=== PATIENT | female | born 1945 | race Caucasian/White ===

== ENCOUNTER 2020-01-12 10:39 | Outpatient (CLI) | payer MEDICARE, BC, SELFPAY ==
--- NOTE | 2020-01-12 10:52 | MM_ITS ---
WS: [id number] Bilateral screening digital mammogram, 01/12/2020 Clinical Data: SCREEN Comparison: 06/19/2016, 04/19/2015, 04/10/2014, 02/15/2013, 08/29/2011, 06/06/2011, 05/23/2011, 04/23/2010 , 03/30/2009, 04/08/2007, 04/17/2006. Findings: The breast parenchymal pattern shows fibroglandular tissue No spiculated masses or clustered calcific ations are seen. There are no secondary signs of carcinoma. MM/[id number] Impression: 1. Negative bilateral mammogram unchanged. 2. Recommend annual screening mammograms. BIRADS: 1-Negative FOLLOW UP: 1 Year Follow-up The CAD box car checker was used.
== END 2020-01-12 10:40 | disposition home or self-care (01) ==
LOC: RADSHAW 10:49
PROVIDERS: PCP Family Medicine; Visit Provider Family Medicine
DX: Z12.31 Encounter for screening mammogram for malignant neoplasm of breast (principal)
CPT/HCPCS: 77067

== ENCOUNTER 2021-03-29 09:30 | Outpatient (CLI) | payer MEDICARE, BC, SELFPAY ==
--- NOTE | 2021-03-29 09:34 | MM_ITS ---
WS: [id number] BILATERAL SCREENING DIGITAL MAMMOGRAM WITH CAD HISTORY: SCREENING COMPARISON: 01/12/2020 and 04/19/2015 Bilateral CC and MLO views submitted. Computer aided detection analyzed. Breast composition: There are scattered areas of fibroglandular density. No suspicious masses, microc alcifications or architectural distortion. Stable calcifications in each breast. MM/[id number] IMPRESSION: BI-RADS: 2-Benign FOLLOW UP: 1 Year Follow-up
== END 2021-03-29 09:31 | disposition home or self-care (01) ==
LOC: RADSHAW 09:33
PROVIDERS: PCP Family Medicine; Visit Provider Radiology Neuroradiology
DX: Z12.31 Encounter for screening mammogram for malignant neoplasm of breast (principal)
CPT/HCPCS: 77067

== ENCOUNTER → 2021-10-10 10:53 | Outpatient (BNVA) | payer MEDICARE, BC, SELFPAY | PROVIDERS: PCP Family Medicine; Referring Provider Internal Medicine; Visit Provider Anesthesiology Pain Medicine | DX: M54.16 Radiculopathy, lumbar region (principal); M79.605 Pain in left leg; M54.2 Cervicalgia; Z87.891 Personal history of nicotine dependence | CPT/HCPCS: 72120; 99204 ==

== ENCOUNTER 2021-11-20 07:36 | Outpatient (CLI) | payer MEDICARE, BC, SELFPAY ==
--- NOTE | 2021-11-20 08:00 | MR_ITS ---
WS: [id number] MRI LUMBAR SPINE NONCONTRAST TECHNIQUE: Sagittal T1, T2 and STIR imaging. Axial T1 and T2 imaging. CLINICAL INFORMATION: M54.16 - Radiculopathy, lumbar region COMPARISON: None. FINDINGS: Mild lumbar curve. No acute compression. No high-grade central canal stenosis. Slight retrolisthesis C4 on C5 on the access control officer imaging with mild central canal stenosis. This can be further evaluated with ce rvical spine MRI. L1-L2: Normal. L2-L3: Mild annular bulging. Slight effacement of ventral thecal sac. Slight narrowing of the RIGHT s ubarticular recess. Spinal canal and foramen are patent. Mild facet arthropathy. L3-L4: Mild annular bulging. Impingement on the RIGHT subarticular recess and traversing RIGHT L4 ner ve root. Mild RIGHT foraminal narrowing. LEFT foramen is patent. L4-L5: Mild annular bulging with narrowing of the subarticular recess bilaterally. Impingement saleem sing L5 nerve roots LEFT greater than RIGHT. Mild central canal stenosis. Mild LEFT and no significan t RIGHT foraminal narrowing. Mild to moderate facet arthropathy. L5-S1: LEFT eccentric disc osteophyte complex with slight contact of the far exiting LEFT L5 nerve ro ot. RIGHT foramen is patent. Mild facet arthropathy. Small bilateral renal cysts. Slightly ectatic infrarenal abdominal aorta measuring 2.5 x 2.6 cm AP by transverse. MR/MR lumbar spine wo con* [id number] IMPRESSION: 1. Mild lumbar curve. No acute compression. No high-grade central canal stenos is. 2. Impingement on the RIGHT L3-L4 subarticular recess and traversing RIGHT L4 nerve root. Mild RIGHT foraminal narrowing at this level. 3. Mild central canal stenosis L4-L5 due to disc bulging with facet arthropath y ligamentum flavum hypertrophy. Mild LEFT foraminal narrowing at this level. 4. LEFT proximal foraminal protrusion L5-S1 with mild LEFT L5-S1 foraminal harrison rowing. 5. Slightly aneurysmal infrarenal abdominal aorta measuring 2.4 x 2.6 CM. This can be further evaluated with CTA abdominal aorta 6. Slight retrolisthesis C4 on C5 on the access control officer imaging with mild central canal stenosis. This can be further evaluated with cervical spine MRI.
== END 2021-11-20 07:37 | disposition home or self-care (01) ==
LOC: RAD 07:38
PROVIDERS: PCP Family Medicine; Visit Provider Anesthesiology Pain Medicine
DX: M54.16 Radiculopathy, lumbar region (principal)
CPT/HCPCS: 72148

== ENCOUNTER → 2021-11-21 10:34 | Outpatient (BNVA) | payer MEDICARE, BC, SELFPAY | PROVIDERS: PCP Family Medicine; Visit Provider Anesthesiology Pain Medicine | DX: M54.50 Low back pain, unspecified (principal); M79.605 Pain in left leg; M54.2 Cervicalgia; Z87.891 Personal history of nicotine dependence | CPT/HCPCS: 99214 ==

== ENCOUNTER → 2021-11-27 13:06 | Outpatient (BNVA) | payer MEDICARE, BC, SELFPAY | PROVIDERS: PCP Family Medicine; Visit Provider Anesthesiology Pain Medicine | DX: M54.50 Low back pain, unspecified (principal); M79.605 Pain in left leg; Z87.891 Personal history of nicotine dependence | CPT/HCPCS: 64483; 99214 ==

== ENCOUNTER → 2021-12-11 14:08 | Outpatient (BNVA) | payer MEDICARE, BC, SELFPAY | PROVIDERS: PCP Family Medicine; Visit Provider Anesthesiology Pain Medicine | DX: Z87.891 Personal history of nicotine dependence (principal); M47.816 Spondylosis without myelopathy or radiculopathy, lumbar region | CPT/HCPCS: 64493; 64494; 64495 ==

== ENCOUNTER → 2022-01-06 13:14 | Outpatient (BNVA) | payer MEDICARE, BC, SELFPAY | PROVIDERS: PCP Family Medicine; Visit Provider Anesthesiology Pain Medicine | DX: Z87.891 Personal history of nicotine dependence (principal); M47.816 Spondylosis without myelopathy or radiculopathy, lumbar region | CPT/HCPCS: 64493; 64494; 64495; J3490 ==

== ENCOUNTER 2022-04-15 09:01 | Outpatient (CLI) | payer MEDICARE, BC, SELFPAY ==
--- NOTE | 2022-04-15 09:05 | MM_ITS ---
WS: [id number] VIEWS: MLO and CC views both breasts. 3D digital tomosynthesis is also included in this exam. Comparison made with prior exam of 02/15/2013, 04/10/2014, 04/19/2015, 06/19/2016, 01/12/2020, 1.. Findings: There was no sign of mass, architectural distortion or suspicious calcification in either breast. He terogeneously dense MM/[place] [id number] Impression: BI-RADS: 2-Benign FOLLOW-UP: 1 Year Follow-up This mammogram was also analyzed by the Computer Aided Detection System R2 Imag e Assembly Press Operator.
== END 2022-04-15 09:02 | disposition home or self-care (01) ==
LOC: RAD 09:01
PROVIDERS: PCP Family Medicine; Visit Provider Family Medicine
DX: Z12.31 Encounter for screening mammogram for malignant neoplasm of breast (principal)
CPT/HCPCS: 77063; 77067

== ENCOUNTER → 2022-04-28 08:40 | Outpatient (BNVA) | payer MEDICARE, BC, SELFPAY | PROVIDERS: PCP Family Medicine; Visit Provider Anesthesiology Pain Medicine | DX: M54.50 Low back pain, unspecified (principal); M79.605 Pain in left leg; M54.2 Cervicalgia; Z87.891 Personal history of nicotine dependence | CPT/HCPCS: 99214 ==

== ENCOUNTER 2023-09-02 15:30 | Observation (INO) | payer MEDICARE, BC, SELFPAY ==
[2023-09-02] VITALS (10 sets, daily range): BP systolic 133–218; BP diastolic 53–116; PULSE 70–91; RESP 17–18; TEMP 36.5–36.7; O2SAT 94–100; BMI 23.9; BMI 23.8
--- NOTE | 2023-09-02 15:33 | CT_ITS ---
WS: [id number] CT HEAD NONCONTRAST HISTORY: STROKE ALERT TECHNIQUE: Contiguous axial imaging performed through the brain in 2.5 mm imaging. Bone and soft tiss ue windows. Sagittal and coronal reformats reviewed. All CT scans at [facility] use at least one of these dose optimization techniques: automated exposure control; mA and/or kV adjustment per pa tient size (includes targeted exams where dose is matched to clinical indication); or iterative recon struction. DLP: 1054.88 mGy COMPARISON: None available. No acute intracranial hemorrhage, midline shift or mass effect. Mild atrophy is symmetric. Mild small vessel ischemic disease. Focal area of increased density along the LEFT anterior interhemispheric falx, 6 mm diameter. Not a typical appearance for blood. This is p robably a partially calcified meningioma. Ventricles: Normal size with no hydrocephalus. Paranasal sinuses: As visualized are clear. Mastoid air cells: Well pneumatized. Calvarium and scalp: Skull is intact with no soft tissue edema or swelling. IMPRESSION: 1. No acute intracranial hemorrhage or edema. 2. Focal area of increased density along the anterior LEFT interhemispheric falx does not have the t ypical appearance for blood. Suspect this may be partially calcified meningioma. Notified Jonny Isbell DO at 09/02/2023 3:47 PM.
--- NOTE | 2023-09-02 15:39 | ECG_ITS ---
[facility] Test Date: 2023-09-02 Pat Name: Holly Longo Department: Room: Gender: Female Fibre Composite Technician: : 1945 Requested By: Jonny Ortez Order Number: [id number] Jillian MD: Vincent Glaser M.D. Measurements Intervals [place] Rate: 71 P: 68 CO: 139 QRS: 31 QRSD: 92 T: 70 QT: 418 QTc: 455 Interpretive Statements SINUS RHYTHM POSSIBLE RIGHT VENTRICULAR CONDUCTION DELAY [RSR (QR) IN V1/V2] LEFT VENTRICULAR HYPERTROPHY AND ST-T CHANGE [VOLTAGE CRITERIA PLUS ST/T ABNORMALITY] POSSIBLE SEPTAL MYOCARDIAL INFARCTION , PROBABLY OLD [30 ms Q WAVE IN V1/V2] No previous ECG available for comparison Electronically Signed On 09-02-2023 16:13:10 CDT by Vincent Glaser M.D. [email or web address]
--- NOTE | 2023-09-02 15:40 | W.ED.NEUROSD ---
HPI - Neuro Symptoms/Deficit General: Chief Complaint: Weakness Stated Complaint: Stroke Alert Time Seen by Provider: 09/02/23 15:39 Source: patient Mode of arrival: wheelchair History of Present Illness: 78-year-old female presents emergency room after a rapid response and in the medical office building she was lightheaded and dizzy felt weak. At the rapid response there was concern there was some facial droop and she was brought to the ER. She initially went to CTs were I first encountered her. Stroke scoring done when she returned to the trauma bay her stroke score is 0 she is bilaterally weak in all extremities but there is no focal deficits. No recent head trauma. She denies chest pain or shortness of breath. Report from the rapid response that she had right-sided facial weakness and numbness on the right arm and leg these are all resolved at the time she is evaluated in the ER. Onset (ago): minute(s) Location: right face, right arm and right leg Severity: mild Quality: weak and numb Relieving factors: none Exacerbating factors: none Associated symptoms: Deny chest pain, cough, diaphoresis, fevers/chills, headache(s), anorexia, malaise, nausea, seizures, short of breath, syncope, tingling, vertigo, vomiting or weakness Treatments Prior to Arrival: none Review of Systems Const: Denies: fever(s), chills, malaise or diaphoresis Card: Denies: chest pain, palpitations or syncope Resp: Denies: dyspnea GI: Denies: abdominal pain, nausea or vomiting : Denies: dysuria, urinary frequency or urinary urgency Musc: Denies: neck pain or back pain Skin/Breast: Denies: rash Neuro: Denies: headache(s) or vertigo [facility] ED PFSH: Medical History (Updated 09/03/23 @ 06:01 by Jonny Isbell DO) Psoriasis, unspecified Personal history of colonic polyps Onychogryphosis Discoid lupus Osteoarthritis of both knees Hyperlipidemia, unspecified Fibromyalgia Neuropathy Carotid arterial disease Osteoarthritis Rheumatoid arthritis Irritable bowel syndrome with diarrhea GERD (gastroesophageal reflux disease) Surgical History S/P rotator cuff repair S/P bunionectomy S/P bilateral cataract extraction S/P colonoscopy History of esophagogastroduodenoscopy (EGD) S/P tonsillectomy S/P hysterectomy with oophorectomy Family History Mother Cancer Other Diabetes Social History Smoking and tobacco/nicotine status: former use of tobacco/nicotine Quit status (tobacco/nicotine): quit date established Alcohol intake: never Substance/Drug Use: never Lives independently: Yes Household members: spouse Housing: House Marital status: NIH stroke score NIHSS: Level Of Consciousness - 1a: 0 Level Of Consciousness Questions - 1b: Both Correct Level Of Consciousness Commands - 1c: Both Correct Best Gaze - 2: Normal Visual Lee - 3: No Visual Loss Facial Palsy - 4: Normal Motor Arm Right - 5: No Drift Motor Arm Left - 5: No Drift Motor Leg Right - 6: No Drift Motor Leg Left - 6: No Drift Limb Ataxia - 7: Absent Sensory - 8: Normal Best Language - 9: No Aphasia Dysarthia - 10: Normal Extinction And Inattention - 11: 0 Score: Total Score: 0 Physical Exam Const: COMMON NORMALS: no acute distress GENERAL APPEARANCE: cooperative and comfortable ORIENTATION/CONSCIOUSNESS: Yes awake, Yes oriented to person, Yes oriented to place and Yes oriented to time HENMT: COMMON NORMALS: normocephalic, atraumatic and hearing grossly normal bilaterally HEAD & SCALP: normocephalic and atraumatic Resp: COMMON NORMALS: normal respiratory effort, No retractions, No use of accessory muscles and clear to auscultation bilaterally AUSCULTATION: clear to auscultation bilaterally Cardio: COMMON NORMALS: regular rate, regular rhythm and No murmurs present (Cardio) RATE: regular rate RHYTHM: regular rhythm GI: COMMON NORMALS: Soft to palpation and No hepatosplenomegaly present AUSCULTATION: Yes normoactive bowel sounds PALPATION: Yes Soft to palpation, No Tenderness to palpation present (GI), No Guarding due to palpation present (GI) and Yes No hepatosplenomegaly present Extremity: COMMON NORMALS: normal to inspection, capillary refill normal, no clubbing, cyanosis or edema, no calf tenderness and no pedal edema Neuro: SENSORIUM/ORIENTATION: Yes oriented to person, Yes oriented to place and Yes oriented to time Skin: COMMON NORMALS: no rashes or lesions noted GENERAL SKIN EXAM: no rashes or lesions noted Course Vital Signs: Vital signs: Vital Signs Temperature 98.4 F 09/03/23 04:00 Pulse Rate 76 09/03/23 04:00 Respiratory Rate 17 09/03/23 04:00 Blood Pressure 148/66 09/03/23 04:00 Pulse Oximetry 93 09/03/23 04:00 Oxygen Delivery Me thod Room Air 09/03/23 04:00 MDM - Neuro Symptoms/Deficit Medical Decision Making Nursing staff who initially triage the patient an order at the rapid response reported right-sided facial droop right-sided weakness. Patient reported same to me later told Dr. Ash that she had left-sided weakness. Both Dr. Ash and I had stroke score that was 0. Patient did had improvement after she had been here some time she was able to stand independently and use a bedside commode. Her speech did improve she had been very weak prior to that a lot of the weakness in her speech and in her motor function improved. Blood pressure remained elevated. Admit observation for TIA and accelerated blood pressure. Discussed with hospitalist and Dr. Nilsa Ash concurs recommends CTA head and neck. Dr. Gooden will admit orders written Medical Records I reviewed the patient's medical records. Lab Data I reviewed the patient's lab results. 09/03/23 04:22 09/03/23 04:22 Radiology Impressions Head/Neck CTA 09/02/23 16:01 IMPRESSION: 1. No large vessel stenosis or occlusion. 2. 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 IMPRESSION: Moderate stenosis at the origin of the left internal carotid artery with an estimated 65% luminal narrowing. No occlusion. REFERENCES: NASCET CRITERIA. The degree of stenosis in the cervical segment of the internal carotid artery is based on NASCET criteria. Normal is no stenosis. Mild is less than 50% stenosis. Moderate is 50-69% stenosis. Severe is 70% to 99% stenosis. Total occlusion is no detectable patent lumen. Laboratory Results WBC 7.19 10^3/uL (3.29-11.43) 09/02/23 15:40 RBC 3.57 10^6/uL (3.85-5.65) L 09/02/23 15:40 Hgb 10.40 g/dL (11.27-16.99) L 09/02/23 15:40 Hct 33.3 % (36-47) L 09/02/23 15:40 MCV 93.3 fl (85-98) 09/02/23 15:40 MCH 29.1 pg (27-33) 09/02/23 15:40 MCHC 31.2 g/dL (30-55) 09/02/23 15:40 RDW 18.6 % (12.1-15.1) H 09/02/23 15:40 Plt Count 334 10^3/cmm (157-399) 09/02/23 15:40 MPV 9.2 fL (7.4-10.4) 09/02/23 15:40 Neut % (Auto) 40.3 % 09/02/23 15:40 Lymph % (Auto) 44.1 % 09/02/23 15:40 [place] % (Auto) 11.0 % 09/02/23 15:40 Eos % (Auto) 3.2 % 09/02/23 15:40 Baso % (Auto) 1.1 % 09/02/23 15:40 Neut # (Auto) 2.90 10^3/uL (1.8-7.7) 09/02/23 15:40 Lymph # (Auto) 3.2 10^3/uL (0.8-4.8) 09/02/23 15:40 [place] # (Auto) 0.8 10^3/uL (0.2-0.9) 09/02/23 15:40 Eos # (Auto) 0.2 10^3/uL (0.0-0.8) 09/02/23 15:40 Baso # (Auto) 0.1 10^3/uL (0.0-0.1) 09/02/23 15:40 Nucleated RBC % (auto) 0 % 09/02/23 15:40 Nucleated RBCs # 0.0 /100WBC 09/02/23 15:40 PT 12.60 SECONDS (12.1-14.9) 09/02/23 15:40 INR 0.91 (0.8-1.2) 09/02/23 15:40 APTT 30.9 SECONDS (23.9-36.7) 09/02/23 15:40 Sodium 141 mmol/L (136-145) 09/02/23 15:40 Potassium 4.3 mmol/L (3.5-5.1) 09/02/23 15:40 Chloride 105 mmol/L (98-107) 09/02/23 15:40 Carbon Dioxide 25 mmol/L (22-29) 09/02/23 15:40 Anion Gap 15.3 (5-19) 09/02/23 15:40 BUN 19 mg/dL (8-23) 09/02/23 15:40 Creatinine 0.9 mg/dL (0.5-0.9) 09/02/23 15:40 GFR Calculation Not Reportable 09/02/23 15:40 Glucose 77 mg/dL (65-115) 09/02/23 15:40 Calculated Osmolality 293 mOsm/kg (285-295) 09/02/23 15:40 Calcium 9.2 mg/dL (8.5-10.5) 09/02/23 15:40 Total Bilirubin 0.3 mg/dL (0.15-1.2) 09/02/23 15:40 AST 27 U/L (0-32) 09/02/23 15:40 ALT 19 U/L (0-33) 09/02/23 15:40 Alkaline Phosphatase 134 U/L (35-105) H 09/02/23 15:40 Troponin T Baseline 20 ng/L (0-10) H 09/02/23 15:40 Troponin T 120 Minute 19.39 ng/L (0-10) H 09/02/23 17:48 Delta Troponin T -0.61 ABS# (0-10) L 09/02/23 17:48 Total Protein 7.1 g/dL (6.6-8.7) 09/02/23 15:40 Albumin 4.3 g/dL (3.5-5.2) 09/02/23 15:40 Globulin 2.8 g/dL (1.3-4.6) 09/02/23 15:40 Urine Color Light yellow (Yellow) 09/02/23 17:06 Urine Appearance Clear (CLEAR) 09/02/23 17:06 Urine pH 7 (5-7) 09/02/23 17:06 Ur Specific [place] 1.010 (1.005-1.030) 09/02/23 17:06 Urine Protein Neg (Negative) 09/02/23 17:06 Urine Glucose (UA) Norm (Normal) 09/02/23 17:06 Urine Ketones Negative (Negative) 09/02/23 17:06 Urine Blood Neg (Negative) 09/02/23 17:06 Urine Nitrate Negative (Negative) 09/02/23 17:06 Urine Bilirubin Neg (Negative) 09/02/23 17:06 Urine Urobilinogen Norm mg/dL (Negative) 09/02/23 17:06 Ur Leukocyte Esterase Negative (Negative) 09/02/23 17:06 Urine Opiates Screen Negative ng/mL (Negative) 09/02/23 17:06 Ur Barbiturates Screen Negative ng/mL (Negative) 09/02/23 17:06 Ur Phencyclidine Scrn Negative ng/mL (Negative) 09/02/23 17:06 Ur Amphetamines Screen Negative ng/mL (Negative) 09/02/23 17:06 U Benzodiazepines Scrn Negative ng/mL (Negative) 09/02/23 17:06 Urine Cocaine Screen Negative ng/mL (Negative) 09/02/23 17:06 U Marijuana (THC) Screen Negative ng/mL (Negative) 09/02/23 17:06 Adenovirus (PCR) Not detected (NOT DETECT) 09/02/23 17:56 C. pneumoniae DNA (PCR) Not detected (NOT DETECT) 09/02/23 17:56 Coronavirus 229E (PCR) Not detected (NOT DETECT) 09/02/23 17:56 Human Metapneumovir PCR Not detected (NOT DETECT) 09/02/23 17:56 Influenza A (H1) PCR Not detected (NOT DETECT) 09/02/23 17:56 Influ A (H1/09) PCR Not detected (NOT DETECT) 09/02/23 17:56 Influenza A (H3) PCR Not detected (NOT DETECT) 09/02/23 17:56 Influenza Type A (PCR) Not detected (NOT DETECT) 09/02/23 17:56 Influenza Type B (PCR) Not detected (NOT DETECT) 09/02/23 17:56 M. pneumoniae (PCR) Not detected (NOT DETECT) 09/02/23 17:56 Parainfluenza 1 (PCR) Not detected (NOT DETECT) 09/02/23 17:56 Parainfluenza 2 (PCR) Not detected (NOT DETECT) 09/02/23 17:56 Parainfluenza 3 (PCR) Not detected (NOT DETECT) 09/02/23 17:56 Parainfluenza 4 (PCR) Not detected (NOT DETECT) 09/02/23 17:56 RSV Type A (PCR) Not detected (NOT DETECT) 09/02/23 17:56 RSV Type B (PCR) Not detected (NOT DETECT) 09/02/23 17:56 Entero/Rhino (PCR) Not detected (NOT DETECT) 09/02/23 17:56 SARS-CoV-2 (PCR) Not detected (NOT DETECT) 09/02/23 17:56 All radiology interpretation(s) finalized by discharge Discharge Plan Discharge Patient Disposition: Placed in Observation Admit Provider: Panchito Gooden Clinical Impression: TIA (transient ischemic attack), HTN (hypertension) Coding Level of Care Code ED College Physics Instructor for Jazlyn Ashley
[2023-09-02] MEDS: labetalol 5 mg/mL SDV 20mL 10 MG IVP (15:45)
[2023-09-02 15:48] LABS: Basophils # 0.1 10^3/uL (0.0-0.1); Basophils % 1.1 %; Eosinophils # 0.2 10^3/uL (0.0-0.8); Eosinophils % 3.2 %; Hematocrit 33.3 % (36-47); Lymphocytes # 3.2 10^3/uL (0.8-4.8); Lymphocytes % 44.1 %; Mean Corpuscular HGB Conc 31.2 g/dL (30-55); Mean Corpuscular Hemoglobin 29.1 pg (27-33); Mean Corpuscular Volume 93.3 fl (85-98); Mean Platelet Volume 9.2 fL (7.4-10.4); Monocytes # 0.8 10^3/uL (0.2-0.9); Neutrophils % 40.3 %; Nucleated Red Blood Cells % 0 %; Platelet Count 334 10^3/cmm (157-399); Red Blood Count 3.57 10^6/uL (3.85-5.65); Red Cell Distribution Width 18.6 % (12.1-15.1); White Blood Count 7.19 10^3/uL (3.29-11.43)
[2023-09-02 16:00] LABS: INR 0.91 (0.8-1.2)
[2023-09-02 16:01] LABS: Partial Thromboplastin Time 30.9 SECONDS (23.9-36.7)
--- NOTE | 2023-09-02 16:01 | CTR_ITS ---
PROCEDURE INFORMATION: Exam: CTA Head With Contrast, Arteriography Exam date and time: 09/02/2023 4:20 PM Age: 78 years old Clinical indication: Stroke-like symptoms; Lt upper extremity and lt lower extremity weakness; Additional info: Tia/accelerated HTN TECHNIQUE: Imaging protocol: Computed tomographic angiography of the head with contrast. Exam focused on the arteries. 3D rendering (Not supervised by radiologist): MIP and/or 3D reconstructed images were created by the technologist. Radiation optimization: All CT scans at this facility use at least one of these dose optimization techniques: automated exposure control; mA and/or kV adjustment per patient size (includes targeted exams where dose is matched to clinical indication); or iterative reconstruction. Contrast material: OMNI 350; Contrast volume: 100 ml; Contrast route: INTRAVENOUS (IV); COMPARISON: CT head thrombolytic [id number] 09/02/2023 3:31 PM RADIATION DOSE METRICS: Total DLP (mGy-cm): 374.59 FINDINGS: ANTERIOR CIRCULATION: Right internal carotid artery: Intracranial segment is patent with no significant stenosis. No aneurysm. Right middle cerebral artery: No occlusion or significant stenosis. No aneurysm. Right anterior cerebral artery: No occlusion or significant stenosis. No aneurysm. Left internal carotid artery: Intracranial segment is patent with no significant stenosis. No aneurysm. Left middle cerebral artery: No occlusion or significant stenosis. No aneurysm. Left anterior cerebral artery: No occlusion or significant stenosis. 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 POSTERIOR CIRCULATION: Right vertebral artery: No occlusion or significant stenosis. No aneurysm. Left vertebral artery: No occlusion or significant stenosis. No aneurysm. Basilar artery: No occlusion or significant stenosis. No aneurysm. Right posterior cerebral artery: No occlusion or significant stenosis. No aneurysm. Left posterior cerebral artery: No occlusion or significant stenosis. No aneurysm. Brain: No definite mass, mass effect, or midline shift. Cerebral ventricles: No ventriculomegaly. Bones/joints: Unremarkable. No acute fracture. Soft tissues: Unremarkable. PROCEDURE INFORMATION: Exam: CTA Neck With Contrast Exam date and time: 09/02/2023 4:20 PM Age: 78 years old Clinical indication: Stroke-like symptoms; Lt upper extremity and lt lower extremity weakness; Additional info: Tia/accelerated HTN TECHNIQUE: Imaging protocol: Computed tomographic angiography of the neck with contrast. Exam focused on the cervical segments of the vasculature. 3D rendering (Not supervised by radiologist): MIP and/or 3D reconstructed images were created by the technologist. Radiation optimization: All CT scans at this facility use at least one of these dose optimization techniques: automated exposure control; mA and/or kV adjustment per patient size (includes targeted exams where dose is matched to clinical indication); or iterative reconstruction. Contrast material: OMNI 350; Contrast volume: 100 ml; Contrast route: INTRAVENOUS (IV); COMPARISON: CT head thrombolytic [id number] 09/02/2023 3:31 PM RADIATION DOSE METRICS: Total DLP (mGy-cm): 374.59 FINDINGS: Right common carotid artery: No stenosis. No dissection or occlusion. Right internal carotid artery: No stenosis of the extracranial segment. No dissection or occlusion. Right external carotid artery: No occlusion or stenosis of the origin. Left common carotid artery: Mild stenosis at the carotid bulb. No dissection or occlusion. Left internal carotid artery: Moderate stenosis at the origin with an estimated 65% luminal narrowing. No dissection or occlusion. Left external carotid artery: No occlusion or stenosis of the origin. Right vertebral artery: No stenosis. No dissection or occlusion. Left vertebral artery: No stenosis. No dissection or occlusion. Soft tissues: Normal. No significant soft tissue swelling. Bones/joints: No acute fracture. CT/CT angio headneck* [id number] IMPRESSION: 1. No large vessel stenosis or occlusion. 2. 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 IMPRESSION: Moderate stenosis at the origin of the left internal carotid artery with an estimated 65% luminal narrowing. No occlusion. REFERENCES: NASCET CRITERIA. The degree of stenosis in the cervical segment of the internal carotid artery is based on NASCET criteria. Normal is no stenosis. Mild is less than 50% stenosis. Moderate is 50-69% stenosis. Severe is 70% to 99% stenosis. Total occlusion is no detectable patent lumen.
[2023-09-02 16:05] LABS: Alanine Aminotransferase 19 U/L (0-33); Albumin Level 4.3 g/dL (3.5-5.2); Alkaline Phosphatase 134 U/L (35-105); Anion Gap 15.3 (5-19); Aspartate Amino Transferase 27 U/L (0-32); Blood Urea Nitrogen 19 mg/dL (8-23); Calcium 9.2 mg/dL (8.5-10.5); Carbon Dioxide 25 mmol/L (22-29); Chloride 105 mmol/L (98-107); Creatinine Clr Calc Pharmacy 45.1893; Globulin 2.8 g/dL (1.3-4.6); Glucose 77 mg/dL (65-115); Osmolality Calculated 293 mOsm/kg (285-295); Potassium 4.3 mmol/L (3.5-5.1); Sodium 141 mmol/L (136-145); Total Bilirubin 0.3 mg/dL (0.15-1.2); Total Protein 7.1 g/dL (6.6-8.7)
[2023-09-02] MEDS: hyDRALAzine 20 mg/mL INJ 1 mL 10 MG IVP (16:06)
--- NOTE | 2023-09-02 16:07 | P.CONIM_ITS ---
Providers/Reason For Consult 2 Consulting Physician/Specialty*: Moses Ash MD neurology and epilepsy Reason for Consult*: Code stroke 09/02/2023 emergency department bed #11 Primary Care Provider: Darby Trejo APRN History of Present Illness History of Present Illness Holly Longo is a 78 year old female with a history of mitral valve prolapse addressed by ship engineer and [place] at [facility], remote CVA 12/27/2022. The patient was accompanying her who had an appointment with Dr. Gillette (cardiology) on 09/02/2023. The patient stated that when they were leaving Dr. Gillette's office she was standing at the desk and experienced blurred vision associated with left leg weakness and slurred speech and chest pressure. The patient stated that she mated to the elevator and went to the first floor and experienced increasing symptoms and therefore she was brought to the [facility] emergency room bed #11 and code stroke was initiated. Noncontrast head CT scan was obtained and revealed No acute intracranial hemorrhage or edema. Focal area of increased density along the anterior LEFT interhemispheric falx does not have the typical appearance for blood. Suspect this may be partially calcified meningioma. NIH score = 0. During neurological examination patient reported resolution of her symptoms. Patient blood pressure was elevated 208/88 and she was given IV labetalol per Dr. Isbell's order. Drug allergies: Shellfish which resulted in anaphylaxis Oxycodone which resulted in itching Moxifloxacin type reaction unknown Sulfonamide antibiotics type reaction unknown Monistat which resulted in agitation Current home medications: Metoprolol 25 mg p.o. daily Aspirin 81 mg p.o. daily Past medical history: Mitral valve prolapse addressed by ship engineer at [facility] in [place] Remote cerebral infarction 12/27/2022 addressed at [facility] in [place] Habits: The patient smoked but quit 10 years ago. She reports to occasional ann marie use Family history: Negative for strokes Review of Systems 2 General: Reports: 10 or more systems reviewed and unremarkable except in HPI and below Medications/Allergies Home Medications Medication Instructions Recorded Confirmed Last Taken Type albuterol sulfate 90 mcg/actuation 2 puff inhalation Q6H PRN 07/05/19 04/28/22 Unknown History aerosol inhaler (ProAir HFA) aspirin 81 mg tablet,delayed 81 mg PO ONCE 07/05/19 04/28/22 Unknown History release epinephrine 0.3 mg/0.3 mL 0.3 mg IM ONCE 07/05/19 04/28/22 Unknown History injection, auto-injector metoprolol succinate 50 mg 50 mg PO BID 07/05/19 04/28/22 Unknown History tablet,extended release 24 hr pantoprazole 40 mg tablet,delayed 40 mg PO ONCE 07/05/19 04/28/22 Unknown History release triamcinolone acetonide 0.1 % 1 applic topical BID 07/05/19 04/28/22 Unknown History topical cream cetirizine 10 mg tablet (Allergy 10 mg PO DAILY PRN 01/03/20 04/28/22 Unknown History Relief (cetirizine)) diazepam 2 mg tablet 2 mg PO TID PRN 01/03/20 04/28/22 Unknown History hydroxyzine HCl 25 mg tablet 25 mg PO TID PRN 01/03/20 04/28/22 Unknown History lamotrigine 100 mg tablet 100 mg PO DAILY 01/03/20 04/28/22 Unknown History silver sulfadiazine 1 % topical 1 applic topical BID #30 grams 04/06/20 04/28/22 Unknown Rx cream (Silvadene) duloxetine 60 mg capsule,delayed 60 mg PO DAILY #30 caps 07/05/20 04/28/22 Unknown Rx release fluconazole 100 mg tablet 100 mg PO DAILY 05/08/21 04/28/22 Unknown History fluticasone propionate 50 1 spray intranasal DAILY 05/08/21 04/28/22 Unknown History mcg/actuation nasal spray,suspension ropinirole 1 mg tablet 1 mg PO DAILY 05/08/21 04/28/22 Unknown History apremilast 30 mg tablet (Otezla) 30 mg PO BID 06/06/21 04/28/22 Unknown History amoxicillin 500 mg capsule 500 mg PO Q8H 10/03/21 04/28/22 Unknown History rifaximin 200 mg tablet (Xifaxan) 200 mg PO TID #90 tabs 04/17/22 04/28/22 Unknown Rx gabapentin 300 mg capsule 300 mg PO TID pain #90 caps 04/28/22 04/28/22 Unknown Rx Allergies Allergy/AdvReac Type Severity Reaction Status Date / Time shellfish derived Allergy Severe ALGY-Anaphy Verified 09/02/23 15:43 laxis oxycodone Allergy Unknown ADR-Itching Verified 09/02/23 15:43 hydrocodone Allergy ADR-Itching Verified 09/02/23 15:43 moxifloxacin [From Avelox] Allergy Unknown Verified 09/02/23 15:43 Sulfa (Sulfonamide Allergy Unknown Verified 09/02/23 15:43 Antibiotics) tioconazole Allergy ADR-Agitate Verified 09/02/23 15:43 [From Monistat 1 d (tioconazole)] PFSH Acute 2 PFSH: Medical History (Updated 09/02/23 @ 16:15 by Moses Ash MD) Psoriasis, unspecified Personal history of colonic polyps Onychogryphosis Discoid lupus Osteoarthritis of both knees Hyperlipidemia, unspecified Fibromyalgia Neuropathy Carotid arterial disease Osteoarthritis Rheumatoid arthritis Irritable bowel syndrome with diarrhea GERD (gastroesophageal reflux disease) Surgical History S/P rotator cuff repair S/P bunionectomy S/P bilateral cataract extraction S/P colonoscopy History of esophagogastroduodenoscopy (EGD) S/P tonsillectomy S/P hysterectomy with oophorectomy Family History Mother Cancer Other Diabetes Social History Smoking and tobacco/nicotine status: former use of tobacco/nicotine Quit status (tobacco/nicotine): quit date established Alcohol intake: never Substance/Drug Use: never Lives independently: Yes Household members: spouse Housing: House Marital status: Vitals/I&O/Wt Last Vital Signs Temp 98.1 F 09/02/23 15:36 Pulse 73 09/02/23 15:36 BP 218/107 09/02/23 15:36 Pulse Ox 100 09/02/23 15:36 O2 Del Method Room Air 09/02/23 15:36 Weight last 48 hrs Weight 131 lb Physical Exam 2 Narrative: NIH score = 0 Blood pressure 208/88 The patient is alert and oriented x 3. Speech fluent. Head normocephalic. Neck supple. Cranial nerves II through XII intact. Pupils equal round and reactive to light and accommodation. Extraocular movements intact. Visual chavarria appear to be full via confrontation. There were no nystagmus. Motor testing 5/5 bilaterally. There was no drift. There was no ataxia. Deep tendon reflexes revealed plantar responses bilaterally. Sensory examination was intact to touch. There was no extinction on double sensory stimulation. Throat clear. Lungs clear. Heart regular rhythm and rate. Extremities were negative for cyanosis or edema. Data 09/02/23 15:40 09/02/23 15:40 A&P Assessment and plan (1) TIA (transient ischemic attack): Impression: 1. Transient ischemic attack manifested as blurred vision, slurred speech, left leg weakness and chest pressure, resolved. NIH score = 0. Since the patient's symptoms resolved, patient was not a candidate for thrombolytics and no thrombolytics were administered 2. History of mitral valve prolapse 3. History of remote stroke 12/27/2022 addressed at [facility] in [place] 4. CT scan performed on 09/02/2023 Focal area of increased density along the anterior LEFT interhemispheric falx does not have the typical appearance for blood. Suspect this may be partially calcified meningioma. Plan: 1. Recommend CT angiogram of the head and neck or MRA of the [place] of [place] and great vessels of the neck to assess for intracranial stenosis 2. Recommend starting patient on lipid-lowering agent and continuing aspirin per NIH stroke protocol 3. Agree with observation admission to observe for any recurrent TIA symptoms 4. Neurochecks per NIH stroke protocol 5. Recommend cardiac evaluation to assess for embolic source for TIA 6. Please give patient stroke education pamphlet 7. Agree with addressing hypertension Consult Attestations 2 Medical Necessity Statement: Patient evaluated by neurology for code stroke emergency department room #11 Coding Level of Care Code 04514 Diagnoses TIA (transient ischemic attack) G45.9
[2023-09-02] MEDS: iohexol 350 mg/mL 500 mL Btl (per mL) IV (16:20)
[2023-09-02 16:30] LABS: Troponin(5th) Baseline 20 ng/L (0-10)
[2023-09-02] MEDS: methylPREDNISolone sod succ 40 mg/mL INJ IVP (16:56)
[2023-09-02] MEDS: diphenhydrAMINE 50 mg/mL SDV 1mL IVP (16:57)
[2023-09-02 17:17] LABS: Add Urine Microscopic? NO; Charge for UA Resulting for Rev
[2023-09-02 17:20] LABS: Bilirubin Urine Neg (Negative); Blood Urine Neg (Negative); Glucose Urine UA Norm (Normal); Ketones Urine Negative (Negative); Leukocyte Esterase Urine Negative (Negative); Nitrate Urine Negative (Negative); Protein Urine Neg (Negative); Urine Appearance Clear (CLEAR); Urine Color Light yellow (Yellow); Urobilinogen Urine Norm (Negative); pH Urine 7 (5-7)
[2023-09-02 17:31] LABS: Amphetamines Screen Urine Negative (Negative); Barbiturates Screen Urine Negative (Negative); Benzodiazepines Screen Urine Negative (Negative); Cocaine Screen Urine Negative (Negative); Opiate Screen Urine Negative (Negative); PCP Screen Urine Negative (Negative); THC Screen Urine Negative (Negative)
--- NOTE | 2023-09-02 18:01 | ECG_ITS ---
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 Measurements Intervals [place] Rate: 78 P: 65 MN: 148 QRS: 17 QRSD: 93 T: 72 QT: 436 QTc: 499 Interpretive Statements SINUS RHYTHM WITH OCCASIONAL SUPRAVENTRICULAR PREMATURE COMPLEXES POSSIBLE RIGHT VENTRICULAR CONDUCTION DELAY [RSR (QR) IN V1/V2] VOLTAGE CRITERIA FOR LVH [MEETS CRITERIA IN ONE OF: R(aVL), S(V1), R(V5), R(V5/V6)+S(V1)] POSSIBLE SEPTAL MYOCARDIAL INFARCTION , PROBABLY OLD [30 ms Q WAVE IN V1/V2] Compared to ECG 09/02/2023 14:41:47 ST (T wave) deviation no longer present Myocardial infarct finding still present Electronically Signed On 09-03-2023 8:35:06 CDT by Vincent Glaser M.D. [id number]
--- NOTE | 2023-09-02 18:06 | P.HP_ITS ---
Providers/Chief Complaint 2 Primary Care Provider: Darby Trejo APRN Chief Complaint: Stroke Alert History of Present Illness 78 yo zoya became unwell while accompanying her who was registering for an appointment at medical office building, feeling like a cold sheet spread over her and she felt weak and like she needed to vomit, became lightheaded with blurred vision. Did not have any chest pain or palpitations. No headache, although did develop some later in ER on the R side. She reports some mild memory/word finding difficulty after her prior stroke. During the episode she remembers experiencing weakness and numbness, although does not remember the side, and feels may have been both. In ER she was assessed by ER physician as well as neurology after stroke code was called. It seems her symptoms had resolved by the time she was in ER. She had undergone assessment by CT head, head and neck CTA. She was quite hypertensive with blood pressure as high as 218/107. She was given labetalol and hydralazine. 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 In the neck she is noted to have moderate stenosis at the origin of the left internal carotid artery with estimated 65% luminal narrowing. He reports she otherwise has been at baseline state of health recently and did not have any changes in her medications apart from metoprolol dose being decreased to 25 mg. She has been feeling slightly cold in the ER and having some tremor, although it is more pronounced in the left upper extremity with some clonus/spasms of left upper arm. Review of Systems 2 Const: Denies: fever(s), chills, body aches or malaise Eyes: Reports: change in vision ENMT: Denies: throat pain Card: Reports: pre-syncope; Denies: chest pain, edema or dyspnea on exertion Resp: Denies: dyspnea, productive cough, change in phlegm color or hemoptysis GI: Denies: abdominal pain, nausea, vomiting, diarrhea, constipation, hematochezia or melena : Denies: flank pain, urinary frequency or hematuria Musc: Denies: back pain, joint swelling or joint redness Skin/Breast: Denies: rash or new lesions Neuro: Reports: headache(s), numbness in extremities, weakness in extremities, dizziness and involuntary movements Medications/Allergies Home Medications Medication Instructions Recorded Confirmed Last Taken Type albuterol sulfate 90 mcg/actuation 2 puff inhalation Q6H PRN 07/05/19 04/28/22 Unknown History aerosol inhaler (ProAir HFA) aspirin 81 mg tablet,delayed 81 mg PO ONCE 07/05/19 04/28/22 Unknown History release epinephrine 0.3 mg/0.3 mL 0.3 mg IM ONCE 07/05/19 04/28/22 Unknown History injection, auto-injector metoprolol succinate 50 mg 50 mg PO BID 07/05/19 04/28/22 Unknown History tablet,extended release 24 hr pantoprazole 40 mg tablet,delayed 40 mg PO ONCE 07/05/19 04/28/22 Unknown History release triamcinolone acetonide 0.1 % 1 applic topical BID 07/05/19 04/28/22 Unknown History topical cream cetirizine 10 mg tablet (Allergy 10 mg PO DAILY PRN 01/03/20 04/28/22 Unknown History Relief (cetirizine)) diazepam 2 mg tablet 2 mg PO TID PRN 01/03/20 04/28/22 Unknown History hydroxyzine HCl 25 mg tablet 25 mg PO TID PRN 01/03/20 04/28/22 Unknown History lamotrigine 100 mg tablet 100 mg PO DAILY 01/03/20 04/28/22 Unknown History silver sulfadiazine 1 % topical 1 applic topical BID #30 grams 04/06/20 04/28/22 Unknown Rx cream (Silvadene) duloxetine 60 mg capsule,delayed 60 mg PO DAILY #30 caps 07/05/20 04/28/22 Unknown Rx release fluconazole 100 mg tablet 100 mg PO DAILY 05/08/21 04/28/22 Unknown History fluticasone propionate 50 1 spray intranasal DAILY 05/08/21 04/28/22 Unknown History mcg/actuation nasal spray,suspension ropinirole 1 mg tablet 1 mg PO DAILY 05/08/21 04/28/22 Unknown History apremilast 30 mg tablet (Otezla) 30 mg PO BID 06/06/21 04/28/22 Unknown History amoxicillin 500 mg capsule 500 mg PO Q8H 10/03/21 04/28/22 Unknown History rifaximin 200 mg tablet (Xifaxan) 200 mg PO TID #90 tabs 04/17/22 04/28/22 Unknown Rx gabapentin 300 mg capsule 300 mg PO TID pain #90 caps 04/28/22 04/28/22 Unknown Rx Allergies Allergy/AdvReac Type Severity Reaction Status Date / Time shellfish derived Allergy Severe ALGY-Anaphy Verified 09/02/23 15:43 laxis oxycodone Allergy Unknown ADR-Itching Verified 09/02/23 15:43 hydrocodone Allergy ADR-Itching Verified 09/02/23 15:43 moxifloxacin [From Avelox] Allergy Unknown Verified 09/02/23 15:43 Sulfa (Sulfonamide Allergy Unknown Verified 09/02/23 15:43 Antibiotics) tioconazole Allergy ADR-Agitate Verified 09/02/23 15:43 [From Monistat 1 d (tioconazole)] PFSH Acute 2 PFSH: Medical History (Updated 09/02/23 @ 18:23 by Panchito Gooden MD) Psoriasis, unspecified Personal history of colonic polyps Onychogryphosis Discoid lupus Osteoarthritis of both knees Hyperlipidemia, unspecified Fibromyalgia Neuropathy Carotid arterial disease Osteoarthritis Rheumatoid arthritis Irritable bowel syndrome with diarrhea GERD (gastroesophageal reflux disease) Surgical History S/P rotator cuff repair S/P bunionectomy S/P bilateral cataract extraction S/P colonoscopy History of esophagogastroduodenoscopy (EGD) S/P tonsillectomy S/P hysterectomy with oophorectomy Family History Mother Cancer Other Diabetes Social History Smoking and tobacco/nicotine status: former use of tobacco/nicotine Quit status (tobacco/nicotine): quit date established Alcohol intake: never Substance/Drug Use: never Lives independently: Yes Household members: spouse Housing: House Marital status: Vitals/I&O/Wt Last Vital Signs Temp 98.1 F 09/02/23 15:36 Pulse 73 09/02/23 15:36 BP 218/107 09/02/23 15:36 Pulse Ox 100 09/02/23 15:36 O2 Del Method Room Air 09/02/23 15:36 Weight last 48 hrs Weight 59.421 kg Physical Exam 2 Const: COMMON NORMALS: patient oriented x3 and alert GENERAL APPEARANCE: c ooperative ORIENTATION/CONSCIOUSNESS: Yes awake HENMT: COMMON NORMALS: oropharynx normal Neck/C-Spine: COMMON NORMALS: no JVD Resp: COMMON NORMALS: normal respiratory effort and clear to auscultation bilaterally AUSCULTATION: clear to auscultation bilaterally Cardio: COMMON NORMALS: no JVD, regular rhythm, S1 normal heart sound present, S2 normal heart sound present and No murmurs present (Cardio) RHYTHM: regular rhythm HEART SOUNDS: S1 normal heart sound present and S2 normal heart sound present GI: COMMON NORMALS: Normal to inspection, nondistended, normoactive bowel sounds present, Soft to palpation and non-tender PALPATION: Yes Soft to palpation Extremity: COMMON NORMALS: no joint enlargement and no pedal edema Neuro: COMMON NORMALS: patient oriented x3 and moves all extremities S ENSORIUM/ORIENTATION: Yes alert OTHER: Minimal word finding difficulty. Awake and alert, fully directions readily. No facial droop. No difficulty with horizontal tracking. Visual chavarria full to confrontation. No visual extinction. Slight slowness but otherwise no difficulty with FNF. No upper or lower extremity drift. Sensation symmetrical, no sensory extinction. She is feeling cold, there is mild tremor in right upper extremity but worse tremor/clonus in the muscles of left upper arm and left shoulder. No rigidity at the wrist. I do not elicit asterixis. Skin: COMMON NORMALS: no rashes or lesions noted GENERAL SKIN EXAM: no rashes or lesions noted Data 09/02/23 15:40 09/02/23 15:40 A&P Assessment and plan (1) TIA (transient ischemic attack): Focal neurologic abnormalities after possible presyncope at medical office building. Reviewed vitals, CBC, INR, CMP, UA, U tox, EKG, CT head, head and neck CTA, ER note, discussed with ER physician, neurology note, discussed with neurologist. CT angiogram head and neck has been obtained, noted moderate stenosis of for left internal carotid artery 65%, she reports previously on ultrasound had 40% during her past stroke, possibly some progression versus mismatch between studies. No large vessel occlusion. Incidentally noted [address] in observation for additional assessment and management. Obtain echo bubble study. Monitor on telemetry. As per discussion with neurology additional assessment by MRI brain. Continue aspirin, start statin. Will need to follow-up with neurology. (2) Pre-syncope: TIA but question of possible presyncope, possibly transient blood pressure decrease versus bradycardia or pauses. Very hypertensive in ER. Alternative question of hypertensive encephalopathy. No chest pain or pressure. Troponin with minimal elevation essentially unchanged baseline to 2 hours. She did complain of feeling cold, aches and chills, feeling weak, will check respiratory viral panel. Will assess orthostatic vitals in the morning. Monitor on telemetry. Assess TTE. Consider electronic device monitor at discharge. (3) Clonus: Possibly chills, however, clonus more pronounced in left upper arm and shoulder. Only fine tremor on the right. Denies any recent medication changes. Denies history of seizure. Discussed with neurologist, will give Ativan 1 mg IV push as well as continue 1 mg every 6 hours as needed for clonus. Assess EEG. Monitor vitals, continuous pulse oximetry for any respiratory depression. Seizure precautions. (4) HTN (hypertension): Uncontrolled hypertension on presentation, received labetalol, hydralazine. Continue hydralazine as needed with parameters. Monitor blood pressures. (5) Carotid stenosis: 60% carotid stenosis, continue aspirin. Add statin. Will need optimization of cardiovascular risk factors. (6) Cerebral aneurysm: Incidentally noted on CTA, will need follow-up. Plan Reports history of atrial fibrillation. On aspirin. Metoprolol. Not on anticoagulation. Consider anticoagulation for stroke risk reduction. Autoimmune disease, psoriasis, discoid lupus, rheumatoid arthritis Other medical problems Requesting to confirm home medications. Attestations 2 Medical Necessity Statement*: Place in observation for additional assessment management of TIA, presyncope. Diagnoses TIA (transient ischemic attack) G45.9 Pre-syncope R55 Clonus R25.8 HTN (hypertension) I10 Carotid stenosis I65.29 Cerebral aneurysm I67.1
--- NOTE | 2023-09-02 18:14 | PC.NURSE ---
PER DR. SUAREZ TOLD TO HOLD [facility].
[2023-09-02 18:25] LABS: Troponin 5 2HR 19.39 ng/L (0-10); Troponin 5 2HR Delta -0.61 ABS# (0-10)
[2023-09-02 19:47] LABS: Adenovirus Not Detected (NOT DETECT); Chlamydia Pneumoniae Not Detected (NOT DETECT); Coronavirus 229E,HKU1,NL63,OC4 Not Detected (NOT DETECT); Human Metapneumovirus Not Detected (NOT DETECT); Human Rhinovirus/Enterovirus Not Detected (NOT DETECT); Influenza A Not Detected (NOT DETECT); Influenza A H1 Not Detected (NOT DETECT); Influenza A H1-2009 Not Detected (NOT DETECT); Influenza A H3 Not Detected (NOT DETECT); Influenza B Not Detected (NOT DETECT); Mycoplasma Pneumoniae Not Detected (NOT DETECT); Parainfluenza Virus Type 1 Not Detected (NOT DETECT); Parainfluenza Virus Type 2 Not Detected (NOT DETECT); Parainfluenza Virus Type 3 Not Detected (NOT DETECT); Parainfluenza Virus Type 4 Not Detected (NOT DETECT); Respiratory Syncytial Virus A Not Detected (NOT DETECT); Respiratory Syncytial Virus B Not Detected (NOT DETECT); SARS-COV-2 Not Detected (NOT DETECT)
[2023-09-02] MEDS: aspirin 81 mg EC Tablet PO (19:57)
[2023-09-02] MEDS: heparin 5,000 unit/mL INJ 1 mL 5000 UNIT SUBCUT (19:57)
--- NOTE | 2023-09-02 22:01 | ECG_ITS ---
[facility] Test Date: 2023-09-02 Pat Name: Holly Longo Department: Room: 259 Gender: Female Hearing Consultant: : 1945 Requested By: Jonny Ortez Order Number: [id number] Jillian MD: Vincent Glaser M.D. Measurements Intervals [place] Rate: 67 P: 67 [place]: 154 QRS: 17 QRSD: 90 T: 48 QT: 445 QTc: 471 Interpretive Statements SINUS RHYTHM POSSIBLE RIGHT VENTRICULAR CONDUCTION DELAY [RSR (QR) IN V1/V2] VOLTAGE CRITERIA FOR LVH [MEETS CRITERIA IN ONE OF: R(aVL), S(V1), R(V5), R(V5/V6)+S(V1)] POSSIBLE SEPTAL MYOCARDIAL INFARCTION , PROBABLY OLD [30 ms Q WAVE IN V1/V2] Compared to ECG 09/02/2023 17:19:41 No significant changes Electronically Signed On 09-03-2023 8:38:14 CDT by Vincent Glaser M.D. [id number]
[2023-09-02] MEDS: atorvastatin 40 mg Tablet PO (22:04)
[2023-09-02 22:13] LABS: Troponin 5 6HR 18.54 ng/L (0-10)
[2023-09-02 22:18] LABS: Troponin 5 6HR Delta -1.46 ng/L (0-12)
[2023-09-03] VITALS (11 sets, daily range): BP systolic 121–194; BP diastolic 54–78; PULSE 76–84; RESP 16–17; TEMP 36.6–37; O2SAT 92–98
[2023-09-03 05:06] LABS: Basophils % 0.5 %; Hematocrit 32.3 % (36-47); Lymphocytes # 1.1 10^3/uL (0.8-4.8); Lymphocytes % 17.3 %; Mean Corpuscular Hemoglobin 28.7 pg (27-33); Mean Corpuscular Volume 92.6 fl (85-98); Mean Platelet Volume 9.7 fL (7.4-10.4); Monocytes # 0.2 10^3/uL (0.2-0.9); Monocytes % 2.3 %; Neutrophils # 5.16 10^3/uL (1.8-7.7); Neutrophils % 79.4 %; Nucleated Red Blood Cells % 0 %; Platelet Count 324 10^3/cmm (157-399); Red Blood Count 3.49 10^6/uL (3.85-5.65); Red Cell Distribution Width 19.1 % (12.1-15.1); White Blood Count 6.49 10^3/uL (3.29-11.43)
[2023-09-03 05:34] LABS: Alanine Aminotransferase 17 U/L (0-33); Albumin Level 3.9 g/dL (3.5-5.2); Alkaline Phosphatase 97 U/L (35-105); Anion Gap 20.2 (5-19); Aspartate Amino Transferase 24 U/L (0-32); Blood Urea Nitrogen 14 mg/dL (8-23); Carbon Dioxide 20 mmol/L (22-29); Chloride 105 mmol/L (98-107); Creatinine Clr Calc Pharmacy 45.3605; Globulin 2.7 g/dL (1.3-4.6); Glucose 167 mg/dL (65-115); Magnesium 2.2 mg/dL (1.7-2.3); Osmolality Calculated 296 mOsm/kg (285-295); Potassium 4.2 mmol/L (3.5-5.1); Sodium 141 mmol/L (136-145); Total Bilirubin 0.3 mg/dL (0.15-1.2); Total Protein 6.6 g/dL (6.6-8.7)
--- NOTE | 2023-09-03 09:30 | MR_ITS ---
WS: [id number] MRI HEAD WITHOUT CONTRAST TECHNIQUE: Sagittal T1, T2 axial, T2 axial FLAIR, axial and coronal T1 images, axial susceptibility w eighted imaging, axial diffusion weighted images, and coronal T2 images were obtained. CLINICAL INFORMATION: TIA vs CVA COMPARISON: CT head 09/02/2023 FINDINGS: No evidence of restricted diffusion to suggest acute ischemia. Ventricular system and basilar cistern s are patent. Mild small vessel changes. Moderate parenchymal volume loss. Normal posterior fossa. No rmal vascular flow voids at the skull base. No extra-axial fluid collections. No evidence of mass or mass effect. Mild mucosal thickening in the paranasal sinuses. Normal posterior nasopharynx and parap haryngeal fat. Mild mucosal thickening RIGHT mastoid tip. Slight retrolisthesis C4 on C5 with mild central canal stenosis in the upper cervical spine. No hemos iderin on the susceptibility weighted images. Moderate to advanced symmetric atrophy temporal lobes a nd hippocampal formations. Mild ventriculomegaly can be seen with normal pressure hydrocephalus in th e appropriate clinical setting. No transependymal edema. Normal fourth ventricle. Previously described possible meningioma on the recent head CT appears to represent a tortuous vessel in this area. No underlying lesion. IMPRESSION: 1. No evidence of restricted diffusion to suggest acute ischemia. 2. Mild small vessel changes with moderate parenchymal volume loss. 3. Moderate to advanced symmetric atrophy temporal lobes and hippocampal formations. 4. Mild ventriculomegaly can be seen with normal pressure hydrocephalus in the appropriate clinical setting. No transependymal edema. Normal fourth ventricle. 5. Previously described possible meningioma or blood products along the anterior falx appears to rep resent a tortuous vessel in this area. No underlying abnormality. 6. No hemosiderin on the susceptibly weighted images.
[2023-09-03] MEDS: aspirin 81 mg EC Tablet 162 MG PO (09:41)
[2023-09-03] MEDS: heparin 5,000 unit/mL INJ 1 mL 5000 UNIT SUBCUT ×2 (09:41→19:31)
--- NOTE | 2023-09-03 09:57 | PM.PN ---
Subjective Subjective: History of Present Illness Holly Longo is a 78 year old female with a history of mitral valve prolapse addressed by family manager and [place] at [facility] 12/27/2022. The patient was accompanying her who had an appointment with Dr. Gillette (cardiology) on 09/02/2023. The patient stated that when they were leaving Dr. Gillette's office she was standing at the desk and experienced blurred vision associated with left leg weakness and slurred speech and chest pressure. The patient stated that she mated to the elevator and went to the first floor and experienced increasing symptoms and therefore she was brought to the [facility] emergency room bed #11 and code stroke was initiated. Noncontrast head CT scan was obtained and revealed No acute intracranial hemorrhage or edema. Focal area of increased density along the anterior LEFT interhemispheric falx does not have the typical appearance for blood. Suspect this may be partially calcified meningioma. NIH score = 0. During neurological examination patient reported resolution of her symptoms. Patient blood pressure was elevated 208/88 and she was given IV labetalol per Dr. Isbell's order. CT angiogram of the head and neck performed on 09/02/2023 revealed: IMPRESSION: Moderate stenosis at the origin of the left internal carotid artery with an estimated 65% luminal narrowing. No occlusion. No large vessel stenosis or occlusion. 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 On reevaluation on 09/03/2023 the patient is doing well she denied any further myoclonic jerks or tremors. Patient was without complaints. She denied any further TIA episodes. Awaiting head MRI and EEG. The patient also informed me for the first time on her reassessment on 09/03/2023 that she fell and hit the right forehead area 2 weeks ago while taking out the trash that was too heavy. Patient stated that she was evaluated by her family physician the following day. Patient denied any headache with the closed head trauma or loss of consciousness. Patient stated that she has some subcutaneous swelling over the right forehead region and was bleeding from her nose and mouth but the swelling and nasal and oral bleeding. Drug allergies: Shellfish which resulted in anaphylaxis Oxycodone which resulted in itching Moxifloxacin type reaction unknown Sulfonamide antibiotics type reaction unknown Monistat which resulted in agitation Current home medications: Metoprolol 25 mg p.o. daily Aspirin 81 mg p.o. daily Past medical history: Mitral valve prolapse addressed by family manager at [facility] in [place] Remote cerebral infarction 12/27/2022 addressed at [facility] in [place] Habits: The patient smoked but quit 10 years ago. She reports to occasional ann marie use Family history: Negative for strokes Review of Systems General: Reports: 10 or mor e systems reviewed and unremarkable except in HPI and below Vitals/I&O/Wt Last Vital Signs Temp 98.6 F 09/03/23 08:00 Pulse 83 09/03/23 08:00 Resp 16 09/03/23 08:00 BP 150/65 09/03/23 08:00 Pulse Ox 92 09/03/23 08:00 O2 Del Method Room Air 09/03/23 04:00 09/02/23 09/03/23 09/03/23 22:59 06:59 14:59 Intake Total 240 / 240 240 / 240 Output Total 900 / 900 Balance 240 / 240 -900 / -660 240 / 240 Weight last 48 hrs Weight 135 lb 9 oz Weight 132 lb 2 oz Weight 131 lb Physical Exam Narrative: NIH score = 0 The patient is alert and oriented x 3. Speech fluent. Head normocephalic. Neck supple. Cranial nerves II through XII intact. Pupils equal round and reactive to light and accommodation. Extraocular movements intact. Visual chavarria appear to be full via confrontation. There were no nystagmus. Motor testing 5/5 bilaterally. There was no drift. There was no ataxia. Deep tendon reflexes revealed plantar responses bilaterally. Sensory examination was intact to touch. There was no extinction on double sensory stimulation. Throat clear. Lungs clear. Heart regular rhythm and rate. Extremities were negative for cyanosis or edema. Urinary Catheter Management: Rose: Cath Placed During This Visit: yes Reason for Continuing Indwelling Catheter: Acute Urinary Retention or Obstruction Urinary Catheter Date of Insertion: 09/02/23 Urinary Catheter Time of Insertion: 21:24 Data 09/03/23 04:22 09/03/23 04:22 A&P Assessment and plan (1) TIA (transient ischemic attack): Impression: 1. Transient ischemic attack manifested as blurred vision, slurred speech, left leg weakness and chest pressure, resolved. NIH score = 0. Since the patient's symptoms resolved, patient was not a candidate for thrombolytics and no thrombolytics were administered 2. History of mitral valve prolapse 3. History of remote stroke 12/27/2022 addressed at [facility] in [place] 4. CT scan performed on 09/02/2023 Focal area of increased density along the anterior LEFT interhemispheric falx does not have the typical appearance for blood. Suspect this may be partially calcified meningioma. 5. Left internal carotid artery stenosis measuring 65% and on CT angiogram of the head and neck 09/02/2023 6. 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 on CT angiogram of the head and neck 09/02/2023 7. Reports of myoclonic jerking/tremors involving the left upper extremity on 09/02/[address] angiogram etiology unclear, currently stable without recurrence Plan: 1. Recommend head MRI without and with contrast to further assess for stroke and to evaluate the falx lesion to assess for meningioma versus hemorrhage since the patient experienced a TIA episode on 09/02/2023 manifested as blurred vision, slurred speech, and left leg weakness that resolved 2. Recommend starting patient on lipid-lowering agent and continuing aspirin per NIH stroke protocol 2a. Recommend increasing aspirin to 325 mg p.o. every morning with food 3. Surface EEG recording to assess for focal motor seizures 4. Neurochecks per NIH stroke protocol 5. Recommend cardiac evaluation to assess for embolic source for TIA 6. Please give patient stroke education pamphlet 7. Agree with addressing hypertension 8. Recommend vascular or neurosurgery evaluation for left ICA stenosis on an outpatient basis to determine if patient is a candidate for left carotid endarterectomy and to address the reported 3 mm aneurysm at the junction of the AICA and left TRAY (2) Left carotid stenosis: (3) Myoclonic jerking: Attestations Medical Necessity Statement*: The patient was evaluated by neurology for code stroke 09/02/2023 and reports of myoclonic jerks involving the left upper extremity Coding Level of Care Code 67349 Diagnoses TIA (transient ischemic attack) G45.9 Left carotid stenosis I65.22 Myoclonic jerking G25.3
--- NOTE | 2023-09-03 11:38 | P.PCN_ITS ---
Documented by User: Margaret Joseph 09/03/23 11:41 EEG Routine Details of Procedure Details/Comments: History of Present Illness Holly Longo is a 78 year old female with a history of mitral valve prolapse addressed by psychiatry teacher and [place] at [facility] 12/27/2022. The patient was accompanying her who had an appointment with Dr. Gillette (cardiology) on 09/02/2023. The patient stated that when they were leaving Dr. Gillette's office she was standing at the desk and experienced blurred vision associated with left leg weakness and slurred speech and chest pressure. The patient stated that she mated to the elevator and went to the first floor and experienced increasing symptoms and therefore she was brought to the [facility] emergency room bed #11 and code stroke was initiated. Noncontrast head CT scan was obtained and revealed No acute intracranial hemorrhage or edema. Focal area of increased density along the anterior LEFT interhemispheric falx does not have the typical appearance for blood. Suspect this may be partially calcified meningioma. NIH score = 0. During neurological examination patient reported resolution of her symptoms. Patient blood pressure was elevated 208/88 and she was given IV labetalol per Dr. Isbell's order. CT angiogram of the head and neck performed on 09/02/2023 revealed: IMPRESSION: Moderate stenosis at the origin of the left internal carotid artery with an estimated 65% luminal narrowing. No occlusion. No large vessel stenosis or occlusion. 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 On reevaluation on 09/03/2023 the patient is doing well she denied any further myoclonic jerks or tremors. Patient was without complaints. She denied any further TIA episodes. Awaiting head MRI and EEG. The patient also informed me for the first time on her reassessment on 09/03/2023 that she fell and hit the right forehead area 2 weeks ago while taking out the trash that was too heavy. Patient stated that she was evaluated by her family physician the following day. Patient denied any headache with the closed head trauma or loss of consciousness. Patient stated that she has some subcutaneous swelling over the right forehead region and was bleeding from her nose and mouth but the swelling and nasal and oral bleeding. Drug allergies: Shellfish which resulted in anaphylaxis Oxycodone which resulted in itching Moxifloxacin type reaction unknown Sulfonamide antibiotics type reaction unknown Monistat which resulted in agitation Current home medications: Metoprolol 25 mg p.o. daily Aspirin 81 mg p.o. 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 She reports to occasional ann marie use Family history: Negative for strokes EEG Routine [id number]- awake & drowsy: [id number] Documented by User: Moses Ash MD 09/03/23 13:07 EEG Routine Details of Procedure Details/Comments: History of Present Illness Holly Longo is a 78 year old female with a history of mitral valve prolapse addressed by psychiatry teacher and [place] at [facility], remote CVA 12/27/2022. The patient was accompanying her who had an appointment with Dr. Gillette (cardiology) on 09/02/2023. The patient stated that when they were leaving Dr. Gillette's office she was standing at the desk and experienced blurred vision associated with left leg weakness and slurred speech and chest pressure. The patient stated that she mated to the elevator and went to the first floor and experienced increasing symptoms and therefore she was brought to the [facility] emergency room bed #11 and code stroke was initiated. Noncontrast head CT scan was obtained and revealed No acute intracranial hemorrhage or edema. Focal area of increased density along the anterior LEFT interhemispheric falx does not have the typical appearance for blood. Suspect this may be partially calcified meningioma. NIH score = 0. During neurological examination patient reported resolution of her symptoms. Patient blood pressure was elevated 208/88 and she was given IV labetalol per Dr. Isbell's order. CT angiogram of the head and neck performed on 09/02/2023 revealed: IMPRESSION: Moderate stenosis at the origin of the left internal carotid artery with an estimated 65% luminal narrowing. No occlusion. No large vessel stenosis or occlusion. 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 On reevaluation on 09/03/2023 the patient is doing well she denied any further myoclonic jerks or tremors. Patient was without complaints. She denied any further TIA episodes. Awaiting head MRI and EEG. The patient also informed me for the first time on her reassessment on 09/03/2023 that she fell and hit the right forehead area 2 weeks ago while taking out the trash that was too heavy. Patient stated that she was evaluated by her family physician the following day. Patient denied any headache with the closed head trauma or loss of consciousness. Patient stated that she has some subcutaneous swelling over the right forehead region and was bleeding from her nose and mouth but the swelling and nasal and oral bleeding. Drug allergies: Shellfish which resulted in anaphylaxis Oxycodone which resulted in itching Moxifloxacin type reaction unknown Sulfonamide antibiotics type reaction unknown Monistat which resulted in agitation Current home medications: Metoprolol 25 mg p.o. daily Aspirin 81 mg p.o. 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 She reports to occasional ann marie use Family history: Negative for strokes EEG TEMPLATE: This is a 19 channel routine surface EEG recording utilizing the sofatutor software with surface and EKG electrodes. The procedure was performed utilizing the international 10-20 system. Patient name: November Date of : 1945 Patient age [age] years old Identification number: [id number] Referring Physician: Moses Ash MD EEG#: EEG Start time: 12:12:37 EEG End time: 12:42:40 Duration of study: 30 minutes Date of study: 09/03/2023 Reason for study: Myoclonic jerks involving the left upper extremity following CT angiogram on 09/02/2023. EEG study performed to assess for myoclonic seizures and to assist in determining if anticonvulsant medications are required Skull defects: None Condition of recording: The patient was reported to be awake and later on drowsy Cooperation: Good Activation procedures: Photic stimulation ? Evoked potentials ? Photic driving Medications: Metoprolol, aspirin Background activity: Background activity during wakefulness consisted of 10 Hz low voltage alpha activity posteriorly penetrated by intermittent low voltage beta activity centrally and anteriorly. The alpha activity was symmetrical and reactive to eye opening. Intermittently during the recording the record was partially obscured by muscle and motion artifact. Later during the recording the alpha activity dropped out and generalized 4 to 7 Hz theta activity was seen over the left and right hemispheres. Photic stimulation: Evoked potentials: No obvious evoked potentials were seen Photic driving: Photic driving was seen at the higher frequencies Interictal activity: None Ictal activity: None Impression: This is a normal awake, and drowsy 30-minute surface EEG recording. Note: A unremarkable EEG does not rule out a underlying seizure disorder. Therefore if clinically indicated recommend continuous video surface EEG monitoring for further clarification. Physician name/Signature: Moses Ash MD equipment engineering technician/Signature: Margaret Cerrato
[2023-09-03] MEDS: losartan 50 mg Tablet 25 MG PO (17:44)
[2023-09-03] MEDS: acetaminophen 325 mg Tablet 650 MG PO (19:31)
--- NOTE | 2023-09-03 19:48 | USCV_ITS ---
November Age: 78 Gender: F : 1945 Exam Date: 09/03/2023 01:54 Ordering Phys: Panchito Gooden MD Technologist: LUIS ANGEL Exam Location: [facility] [place] Indication: TIA, presyncope, BUBBLE STUDY BP: 121 / 67 HR: 73 Rhythm: Sinus Technical Quality: Adequate MEASUREMENTS (Male / Female) Normal Values 2D ECHO LV Diastolic Diameter PLAX 4.0 cm 4.2 - 5.9 / 3.9 - 5.3 cm IVS Diastolic Thickness 1.2 cm 0.6 - 1.0 / 0.6 - 0.9 cm IVS Systolic Thickness 1.5 cm LVPW Diastolic Thickness 1.0 cm 0.6 - 1.0 / 0.6 - 0.9 cm LVPW Systolic Thickness 1.5 cm LVOT Diameter 1.8 cm LV Ejection Fraction 2D Teich 71.0 % LV Ejection Fraction MOD 2C 66.2 % LV Ejection Fraction 2C AL 66.1 % LA Diameter 3.6 cm Aorta at Sinotubular Diameter 2.7 cm IVC Diameter 1.1 cm M-MODE LA Ao Ratio MM 1.2 AV Cusp Separation MM 1.3 cm DOPPLER AV Peak Velocity 179.0 cm/s LVOT Peak Velocity 145.0 cm/s AV Area Cont Eq vti 1.9 cm squared AV Area Cont Eq pk 2.0 cm squared MV Peak Velocity 134.0 cm/s MV Area PHT 3.7 cm squared Mitral E to A Ratio 0.6 TV Peak E Velocity 50.0 cm/s PV Peak Velocity 114.0 cm/s FINDINGS Left Ventricle Left ventricle normal in size and function. Mild left ventricular hypertrophy. Ejection fraction is 65%. Grade 1 diastolic dysfunction. No regional wall motion disturbances. Right Ventricle Normal right ventricular size and systolic function. Right Atrium The right atrium is normal in size. Left Atrium The left atrium is normal in size. Mitral Valve Structurally normal mitral valve. Trace mitral valve regurgitation. Aortic Valve Structurally normal trileaflet aortic valve. Aortic valve sclerosis without stenosis. Mild aortic valve regurgitation. Tricuspid Valve Structurally normal tricuspid valve. Trace tricuspid valve regurgitation. Pulmonic Valve Pulmonic valve not well visualized. Pericardium Normal pericardium without effusion. Aorta Normal ascending aorta dimension. IVC The inferior vena cava appears normal. CONCLUSIONS Left ventricle normal in size and function. Mild left ventricular hypertrophy. Ejection fraction is 65%. Grade 1 diastolic dysfunction. No regional wall motion disturbances. Structurally normal mitral valve. Trace mitral valve regurgitation. Structurally normal trileaflet aortic valve. Aortic valve sclerosis without stenosis. Mild aortic valve regurgitation. A bubble study was performed which was negative. No change from the previous study performed in November 2013. Dr. Edilberto Caldwell MD (Electronically Signed) Final Date: 03 September 2023 09:41 S
--- NOTE | 2023-09-03 20:11 | P.PN_ITS ---
Subjective 2 Subjective: Denies any additional syncopal or presyncopal episodes. Today she is doing well. No tremors, chills, or clonus in the left upper extremity or elsewhere. Vitals/I&O/Wt Last Vital Signs Temp 97.9 F 09/03/23 16:00 Pulse 78 09/03/23 20:00 Resp 17 09/03/23 20:00 BP 155/54 09/03/23 20:00 Pulse Ox 94 09/03/23 20:00 O2 Del Method Room Air 09/03/23 04:00 09/03/23 09/03/23 09/03/23 06:59 14:59 22:59 Intake Total 480 / 480 450 / 930 Output Total 900 / 900 Balance -900 / -660 480 / 480 450 / 930 Weight last 48 hrs Weight 61.49 kg Weight 59.931 kg Weight 59.421 kg Physical Exam 2 Const: COMMON NORMALS: patient oriented x3 and alert GENERAL APPEARANCE: c ooperative ORIENTATION/CONSCIOUSNESS: Yes awake HENMT: COMMON NORMALS: oropharynx normal Neck/C-Spine: COMMON NORMALS: no JVD Resp: COMMON NORMALS: normal respiratory effort and clear to auscultation bilaterally AUSCULTATION: clear to auscultation bilaterally Cardio: COMMON NORMALS: no JVD, regular rhythm, S1 normal heart sound present, S2 normal heart sound present and No murmurs present (Cardio) RHYTHM: regular rhythm HEART SOUNDS: S1 normal heart sound present and S2 normal heart sound present GI: COMMON NORMALS: Normal to inspection, nondistended, normoactive bowel sounds present, Soft to palpation and non-tender PALPATION: Yes Soft to palpation Extremity: COMMON NORMALS: no joint enlargement and no pedal edema Neuro: COMMON NORMALS: patient oriented x3 and moves all extremities S ENSORIUM/ORIENTATION: Yes alert OTHER: Minimal word finding difficulty. Awake and alert, fully directions readily. No facial droop. No difficulty with horizontal tracking. Visual chavarria full to confrontation. No visual extinction. Slight slowness but otherwise no difficulty with FNF. No upper or lower extremity drift. Sensation symmetrical, no sensory extinction. No tremor or clonus. Skin: COMMON NORMALS: no rashes or lesions noted GENERAL SKIN EXAM: no rashes or lesions noted Urinary Catheter Management: Rose: Cath Placed During This Visit: yes Reason for Continuing Indwelling Catheter: Acute Urinary Retention or Obstruction Urinary Catheter Date of Insertion: 09/02/23 Urinary Catheter Time of Insertion: 21:24 Data 09/03/23 04:22 09/03/23 04:22 A&P Assessment and plan (1) TIA (transient ischemic attack): She has recovered from TIA, underwent head MRI, discussed with her and neurology after reviewing study, reviewed vitals, CBC, CMP, echocardiogram. EEG. She is doing well today. Did start to become more hypertensive again through the day and had to start her losartan. Will need optimization of control of hypertension. Otherwise continue aspirin, start statin. Echo bubble study without shunt per discussion with dry cell battery assembler. Plans were for discharge home today with follow-up outpatient with PCP and neurology, however at 8-year-old thunderstorm started this afternoon and her is unable to pick her up. Focal neurologic abnormalities after possible presyncope at medical office building. CT angiogram head and neck has been obtained, noted moderate stenosis of for left internal carotid artery 65%, she reports previously on ultrasound had 40% during her past stroke, possibly some progression versus mismatch between studies. No large vessel occlusion. Incidentally noted 3 mm cerebral aneurysm. (2) Pre-syncope: Without recurrence, orthostatics negative. Monitor on telemetry here, discussed with dry cell battery assembler will set up manager cardiac at discharge. Follow-up with provider. Continue to optimize hypertension. TIA but question of possible presyncope, possibly transient blood pressure decrease versus bradycardia or pauses. Very hypertensive in ER. Alternative question of hypertensive encephalopathy. No chest pain or pressure. Troponin with minimal elevation essentially unchanged baseline to 2 hours. She did complain of feeling cold, aches and chills, feeling weak, will check respiratory viral panel. Will assess orthostatic vitals in the morning. Monitor on telemetry. Assess TTE. Consider manager cardiac at discharge. (3) Clonus: This is resolved without recurrence. Discussed with neurology. Consideration possibly of some angiopathic reaction with history of shellfish allergy, possibly add contrast. Did not have any signs of anaphylaxis. She would seek attention in case of recurrence. EEG reviewed, no seizure. Possibly chills, however, clonus more pronounced in left upper arm and shoulder. Only fine tremor on the right. Denies any recent medication changes. Denies history of seizure. Discussed with neurologist, will give Ativan 1 mg IV push as well as continue 1 mg every 6 hours as needed for clonus. Assess EEG. Monitor vitals, continuous pulse oximetry for any respiratory depression. Seizure precautions. (4) HTN (hypertension): Add losartan. Uncontrolled hypertension on presentation, received labetalol, hydralazine. Continue hydralazine as needed with parameters. Monitor blood pressures. (5) Carotid stenosis: 60% carotid stenosis, continue aspirin. Add statin. Will need optimization of cardiovascular risk factors. (6) Cerebral aneurysm: Incidentally noted on CTA, will need follow-up. Plan Reports history of atrial fibrillation. On aspirin. Metoprolol. Not on anticoagulation. Consider anticoagulation for stroke risk reduction. Autoimmune disease, psoriasis, discoid lupus, rheumatoid arthritis Other medical problems Requesting to confirm home medications. Attestations 2 Medical Necessity Statement*: Continue hospitalization following TIA, presyncope. and High MDM includes amount and/or complexity of data reviewed/ordered [ resulted lab(s)/test(s) and other healthcare professional discussion] as documented Diagnoses TIA (transient ischemic attack) G45.9 Pre-syncope R55 Clonus R25.8 HTN (hypertension) I10 Carotid stenosis I65.29 Cerebral aneurysm I67.1
[2023-09-03] MEDS: atorvastatin 40 mg Tablet PO (21:49)
[2023-09-04 04:22] VITALS: BP 122/57; PULSE 76; RESP 16; O2SAT 95
[2023-09-04 05:13] LABS: Basophils # 0.1 10^3/uL (0.0-0.1); Basophils % 1.3 %; Eosinophils # 0.3 10^3/uL (0.0-0.8); Eosinophils % 3.3 %; Hematocrit 30.8 % (36-47); Lymphocytes # 2.8 10^3/uL (0.8-4.8); Lymphocytes % 36.1 %; Mean Corpuscular HGB Conc 31.5 g/dL (30-55); Mean Corpuscular Hemoglobin 28.7 pg (27-33); Mean Corpuscular Volume 91.1 fl (85-98); Mean Platelet Volume 9.8 fL (7.4-10.4); Monocytes # 0.6 10^3/uL (0.2-0.9); Monocytes % 7.2 %; Neutrophils # 4.02 10^3/uL (1.8-7.7); Neutrophils % 51.6 %; Nucleated Red Blood Cells % 0 %; Platelet Count 322 10^3/cmm (157-399); Red Blood Count 3.38 10^6/uL (3.85-5.65); Red Cell Distribution Width 19.1 % (12.1-15.1); White Blood Count 7.79 10^3/uL (3.29-11.43)
[2023-09-04 05:51] LABS: Alanine Aminotransferase 15 U/L (0-33); Albumin Level 3.8 g/dL (3.5-5.2); Alkaline Phosphatase 84 U/L (35-105); Anion Gap 13.9 (5-19); Aspartate Amino Transferase 24 U/L (0-32); Blood Urea Nitrogen 12 mg/dL (8-23); Calcium 8.8 mg/dL (8.5-10.5); Carbon Dioxide 25 mmol/L (22-29); Chloride 109 mmol/L (98-107); Creatinine Clr Calc Pharmacy 51.3948; Globulin 2.5 g/dL (1.3-4.6); Glucose 89 mg/dL (65-115); Osmolality Calculated 297 mOsm/kg (285-295); Potassium 3.9 mmol/L (3.5-5.1); Sodium 144 mmol/L (136-145); Total Bilirubin 0.5 mg/dL (0.15-1.2); Total Protein 6.3 g/dL (6.6-8.7)
[2023-09-04 08:00] VITALS: BP 123/66; PULSE 71; RESP 14; TEMP 36.4; O2SAT 94
[2023-09-04] MEDS: losartan 50 mg Tablet 25 MG PO (08:02)
[2023-09-04] MEDS: heparin 5,000 unit/mL INJ 1 mL 5000 UNIT SUBCUT (08:02)
[2023-09-04] MEDS: aspirin 81 mg EC Tablet 162 MG PO (08:02)
[2023-09-04 10:49] VITALS: BP 123/66; PULSE 71; RESP 14; TEMP 36.4; O2SAT 94
--- NOTE | 2023-09-04 12:19 | P.DS_ITS ---
Discharge Providers Date of Admission: 09/02/23 19:30 Date of Discharge: September 04, 2023 Attending Provider at Admission: Panchito Gooden Attending Provider at Discharge: Panchito Gooden Primary Care Provider: Darby Trejo APRN Diagnoses at Discharge Discharge Diagnosis (1) TIA (transient ischemic attack): Status: Acute (2) Pre-syncope: Status: Acute (3) Clonus: Status: Acute (4) HTN (hypertension): Status: Acute (5) Carotid stenosis: Status: Acute (6) Cerebral aneurysm: Status: Acute Reason for Visit 2 Reason for Visit: Stroke Alert Brief History: 78 yo lady became unwell while accompany ing her who was registering for an appointment at medical office building, feeling like a cold sheet spread over her and she felt weak and like she needed to vomit, became lightheaded with blurred vision. Did not have any chest pain or palpitations. No headache, although did develop some later in ER on the R side. She reports some mild memory/word finding difficulty after her prior stroke. During the episode she remembers experiencing weakness and numbness, although does not remember the side, and feels may have been both. In ER she was assessed by ER physician as well as neurology after stroke code was called. It seems her symptoms had resolved by the time she was in ER. She had undergone assessment by CT head, head and neck CTA. She was quite hypertensive with blood pressure as high as 218/107. She was given labetalol and hydralazine. 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 In the neck she is noted to have moderate stenosis at the origin of the left internal carotid artery with estimated 65% luminal narrowing. He reports she otherwise has been at baseline state of health recently and did not have any changes in her medications apart from metoprolol dose being decreased to 25 mg. She has been feeling slightly cold in the ER and having some tremor, although it is more pronounced in the left upper extremity with some clonus/spasms of left upper arm. Hospital Course Hospital Course She was given a dose of Ativan due to clonus/spasm, possibly reaction secondary to iodinated contrast which she received shortly prior, but otherwise no signs of anaphylaxis, spasms resolved, alternatively possibility of seizure, was assessed by EEG which did not detect seizure. She did not have recurrence of symptoms. Brain MRI did not show ischemia, showed mild ventriculomegaly with noted possibility of NPH, although she did not endorse other symptoms, discussed with neurology, will follow-up in office. Previously described possible meningioma or blood products in anterior falx on MRI noted to be a tortuous vessel in the area. She was additionally assessed by echocardiogram bubble study which was negative for intracardiac shunt. Vitals and heart rhythm were monitored, she did not have any episodes of hypotension, orthostatics were checked and were negative. With possible presyncope preadmission she is discharging with personnel monitor. Blood pressure will benefit from further optimization as she has been becoming gradually more hypertensive and had to be started on additional medication, started on losartan. Please follow-up and optimize hypertension. She otherwise continues on aspirin, statin increased up to 40 mg with noted slough present 60% unilateral carotid stenosis. Incidentally noted 3 mm cerebral aneurysm at the junction of AICA and left TRAY will need follow-up. Physical Exam Const: COMMON NORMALS: patient oriented x3 and alert GENERAL APPEARANCE: cooperative ORIENTATION/CONSCIOUSNESS: Yes awake HENMT: COMMON NORMALS: oropharynx normal Neck/C-Spine: COMMON NORMALS: no JVD Resp: COMMON NORMALS: normal respiratory effort and clear to auscultation bilaterally AUSCULTATION: clear to auscultation bilaterally Cardio: COMMON NORMALS: no JVD, regular rhythm, S1 normal heart sound present, S2 normal heart sound present and No murmurs present (Cardio) RHYTHM: regular rhythm HEART SOUNDS: S1 normal heart sound present and S2 normal heart sound present GI: COMMON NORMALS: Normal to inspection, nondistended, normoactive bowel sounds present, Soft to palpation and non-tender PALPATION: Yes Soft to palpation Extremity: COMMON NORMALS: no joint enlargement and no pedal edema Neuro: COMMON NORMALS: patient oriented x3 and moves all extremities SENSORIUM/ORIENTATION: Yes alert OTHER: Minimal word finding difficulty. Awake and alert, fully directions readily. No facial droop. No difficulty with horizontal tracking. Visual chavarria full to confrontation. No visual extinction. Slight slowness but otherwise no difficulty with FNF. No upper or lower extremity drift. Sensation symmetrical, no sensory extinction. No tremor or clonus. Skin: COMMON NORMALS: no rashes or lesions noted GENERAL SKIN EXAM: no rashes or lesions noted Urinary Catheter Management: Rose: Cath Placed During This Visit: yes, but has since been removed by the nurse Reason for Continuing Indwelling Catheter: Does Not Meet Criteria Urinary Catheter Date of Insertion: 09/02/23 Urinary Catheter Time of Insertion: 21:24 Date Urinary Catheter Removed: 09/04/23 Time Urinary Catheter Discontinued: 09:50 Discharge Data Studies Completed and Pending Completed Studies During Hospitalization Category Date Time Status CT head thrombolytic [id number] Stat Cat Scan 09/02/23 15:33 Completed CTA head neck [CT angio headneck* [id number]] Stat Cat Scan 09/02/23 16:01 Completed MR head wo con* [id number] Routine MRI 09/03/23 09:30 Completed CV. echo w/w bubble cont [id number] Routine Ultrasound 09/03/23 19:48 Completed Pending at discharge Category Date Time Status EEG electroencephalogram Routine Exams 09/02/23 19:48 Ordered EEG electroencephalogram Routine Exams 09/03/23 11:36 Ordered Radiology Impressions Head/Neck CTA 09/02/23 16:01 IMPRESSION: 1. No large vessel stenosis or occlusion. 2. 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 IMPRESSION: Moderate stenosis at the origin of the left internal carotid artery with an estimated 65% luminal narrowing. No occlusion. REFERENCES: NASCET CRITERIA. The degree of stenosis in the cervical segment of the internal carotid artery is based on NASCET criteria. Normal is no stenosis. Mild is less than 50% stenosis. Moderate is 50-69% stenosis. Severe is 70% to 99% stenosis. Total occlusion is no detectable patent lumen. Laboratory Results WBC 7.79 10^3/uL (3.29-11.43) 09/04/23 04:55 RBC 3.38 10^6/uL (3.85-5.65) L 09/04/23 04:55 Hgb 9.70 g/dL (11.27-16.99) L 09/04/23 04:55 Hct 30.8 % (36-47) L 09/04/23 04:55 MCV 91.1 fl (85-98) 09/04/23 04:55 MCH 28.7 pg (27-33) 09/04/23 04:55 MCHC 31.5 g/dL (30-55) 09/04/23 04:55 RDW 19.1 % (12.1-15.1) H 09/04/23 04:55 Plt Count 322 10^3/cmm (157-399) 09/04/23 04:55 MPV 9.8 fL (7.4-10.4) 09/04/23 04:55 Neut % (Auto) 51.6 % 09/04/23 04:55 Lymph % (Auto) 36.1 % 09/04/23 04:55 Seward % (Auto) 7.2 % 09/04/23 04:55 Eos % (Auto) 3.3 % 09/04/23 04:55 Baso % (Auto) 1.3 % 09/04/23 04:55 Neut # (Auto) 4.02 10^3/uL (1.8-7.7) 09/04/23 04:55 Lymph # (Auto) 2.8 10^3/uL (0.8-4.8) 09/04/23 04:55 Seward # (Auto) 0.6 10^3/uL (0.2-0.9) 09/04/23 04:55 Eos # (Auto) 0.3 10^3/uL (0.0-0.8) 09/04/23 04:55 Baso # (Auto) 0.1 10^3/uL (0.0-0.1) 09/04/23 04:55 Nucleated RBC % (auto) 0 % 09/04/23 04:55 Nucleated RBCs # 0.0 /100WBC 09/04/23 04:55 PT 12.60 SECONDS (12.1-14.9) 09/02/23 15:40 INR 0.91 (0.8-1.2) 09/02/23 15:40 APTT 30.9 SECONDS (23.9-36.7) 09/02/23 15:40 Sodium 144 mmol/L (136-145) 09/04/23 04:55 Potassium 3.9 mmol/L (3.5-5.1) 09/04/23 04:55 Chloride 109 mmol/L (98-107) H 09/04/23 04:55 Carbon Dioxide 25 mmol/L (22-29) 09/04/23 04:55 Anion Gap 13.9 (5-19) 09/04/23 04:55 BUN 12 mg/dL (8-23) 09/04/23 04:55 Creatinine 0.8 mg/dL (0.5-0.9) 09/04/23 04:55 GFR Calculation Not Reportable 09/04/23 04:55 Glucose 89 mg/dL (65-115) 09/04/23 04:55 Calculated Osmolality 297 mOsm/kg (285-295) H 09/04/23 04:55 Calcium 8.8 mg/dL (8.5-10.5) 09/04/23 04:55 Magnesium 2.2 mg/dL (1.7-2.3) 09/03/23 04:22 Total Bilirubin 0.5 mg/dL (0.15-1.2) 09/04/23 04:55 AST 24 U/L (0-32) 09/04/23 04:55 ALT 15 U/L (0-33) 09/04/23 04:55 Alkaline Phosphatase 84 U/L (35-105) 09/04/23 04:55 Troponin T Baseline 20 ng/L (0-10) H 09/02/23 15:40 Troponin T 120 Minute 19.39 ng/L (0-10) H 09/02/23 17:48 Delta Troponin T -0.61 ABS# (0-10) L 09/02/23 17:48 Troponin T Hi Sens 6Hr 18.54 ng/L (0-10) H 09/02/23 21:30 Troponin T Hi Sens 6Hr Delta -1.46 ng/L (0-12) L 09/02/23 21:30 Total Protein 6.3 g/dL (6.6-8.7) L 09/04/23 04:55 Albumin 3.8 g/dL (3.5-5.2) 09/04/23 04:55 Globulin 2.5 g/dL (1.3-4.6) 09/04/23 04:55 Urine Color Light yellow (Yellow) 09/02/23 17:06 Urine Appearance Clear (CLEAR) 09/02/23 17:06 Urine pH 7 (5-7) 09/02/23 17:06 Ur Specific Drew 1.010 (1.005-1.030) 09/02/23 17:06 Urine Protein Neg (Negative) 09/02/23 17:06 Urine Glucose (UA) Norm (Normal) 09/02/23 17:06 Urine Ketones Negative (Negative) 09/02/23 17:06 Urine Blood Neg (Negative) 09/02/23 17:06 Urine Nitrate Negative (Negative) 09/02/23 17:06 Urine Bilirubin Neg (Negative) 09/02/23 17:06 Urine Urobilinogen Norm mg/dL (Negative) 09/02/23 17:06 Ur Leukocyte Esterase Negative (Negative) 09/02/23 17:06 Urine Opiates Screen Negative ng/mL (Negative) 09/02/23 17:06 Ur Barbiturates Screen Negative ng/mL (Negative) 09/02/23 17:06 Ur Phencyclidine Scrn Negative ng/mL (Negative) 09/02/23 17:06 Ur Amphetamines Screen Negative ng/mL (Negative) 09/02/23 17:06 U Benzodiazepines Scrn Negative ng/mL (Negative) 09/02/23 17:06 Urine Cocaine Screen Negative ng/mL (Negative) 09/02/23 17:06 U Marijuana (THC) Screen Negative ng/mL (Negative) 09/02/23 17:06 Adenovirus (PCR) Not detected (NOT DETECT) 09/02/23 17:56 C. pneumoniae DNA (PCR) Not detected (NOT DETECT) 09/02/23 17:56 Coronavirus 229E (PCR) Not detected (NOT DETECT) 09/02/23 17:56 Human Metapneumovir PCR Not detected (NOT DETECT) 09/02/23 17:56 Influenza A (H1) PCR Not detected (NOT DETECT) 09/02/23 17:56 Influ A (H1/09) PCR Not detected (NOT DETECT) 09/02/23 17:56 Influenza A (H3) PCR Not detected (NOT DETECT) 09/02/23 17:56 Influenza Type A (PCR) Not detected (NOT DETECT) 09/02/23 17:56 Influenza Type B (PCR) Not detected (NOT DETECT) 09/02/23 17:56 M. pneumoniae (PCR) Not detected (NOT DETECT) 09/02/23 17:56 Parainfluenza 1 (PCR) Not detected (NOT DETECT) 09/02/23 17:56 Parainfluenza 2 (PCR) Not detected (NOT DETECT) 09/02/23 17:56 Parainfluenza 3 (PCR) Not detected (NOT DETECT) 09/02/23 17:56 Parainfluenza 4 (PCR) Not detected (NOT DETECT) 09/02/23 17:56 RSV Type A (PCR) Not detected (NOT DETECT) 09/02/23 17:56 RSV Type B (PCR) Not detected (NOT DETECT) 09/02/23 17:56 Entero/Rhino (PCR) Not detected (NOT DETECT) 09/02/23 17:56 SARS-CoV-2 (PCR) Not detected (NOT DETECT) 09/02/23 17:56 Vitals Last Vital Signs Temp 97.5 F L 09/04/23 10:49 Pulse 71 09/04/23 10:49 Resp 14 09/04/23 10:49 BP 123/66 09/04/23 10:49 Pulse Ox 94 09/04/23 10:49 O2 Del Method Room Air 09/04/23 08:00 Discharge Plan Discharge Patient Disposition: Home Condition: Stable Prescriptions: New atorvastatin 40 mg Tablet 40 mg PO BEDTIME Qty: 90 0RF losartan 25 mg tablet 25 mg PO DAILY Qty: 90 0RF Continued pantoprazole 40 mg tablet,delayed release (DR/EC) 40 mg PO ONCE aspirin 81 mg tablet,delayed release (DR/EC) 81 mg PO DAILY albuterol sulfate [ProAir HFA] 90 mcg/actuation HFA aerosol inhaler 2 puff INHALATION Q6H PRN (Reason: Shortness Of Breath Or Wheezing) cetirizine [Allergy Relief (cetirizine)] 10 mg tablet 10 mg PO DAILY PRN (Reason: Allergy Symptoms) fluticasone propionate 50 mcg/actuation spray,suspension 1 spray intranasal DAILY Rx Instructions: administer into each nostril Xifaxan 200 mg tablet 200 mg PO TID Qty: 90 3RF metoprolol tartrate 25 mg tablet 25 mg PO BID methotrexate sodium 2.5 mg tablet 10 mg PO Q7D Rx Instructions: ON THURSDAY meclizine 25 mg tablet 25 mg PO BID PRN (Reason: Dizziness Or Vertigo) folic acid 1 mg tablet 1 mg PO DAILY sertraline 50 mg tablet 50 mg PO DAILY Magnebind 400 80-115 mg Tablet 1 tab PO DAILY Changed furosemide 20 mg tablet 20 mg PO DAILY PRN (Reason: Edema) Qty: 1 0RF Rx Instructions: Change to as needed only. Discontinued atorvastatin 10 mg tablet 10 mg PO BEDTIME Discharge Orders: Discharge Order (Routine); Ordered 09/03/23 Ordered By: Panchito Gooden Other Ambulatory Orders: MCT/Event Monitor 21 Days (Routine) Timeframe: 1 Day Facility: [facility] - Location: Radiology Ordered By: Panchito Gooden Referrals: Moses Ash MD [Physician] - 11/11/23 8:00 am Marc Buchanan MD [Physician] - 2 weeks (ICA stenosis, TIA, 3mm L AICA/TRAY junction aneurysm. We have notified your physician's clinic of the need for a follow-up appointment to be scheduled. If you have not heard from them within the next 2 business days, please call them directly. ) Laura Trejo APRN [Primary Care Provider] - 09/10/23 1:30 pm (PHONE NUMBER [phone] ) Discharge Diet: Cardiac Patient Instructions: Losartan (By mouth) (Cozaar), Atorvastatin (By mouth) (Lipitor, Atorvaliq), Transient Ischemic Attack (GEN), Carotid Artery Disease (GEN), Hypertension (GEN), Near Syncope (GEN) Activity Restrictions/Additional Instructions: APPOINTMENT FOR HEART MONITOR [facility] SE[facility] AT 3:00 Follow-up with your primary doctor and with neurology for assessment after a transient ischemic attack. Monitor your blood pressures 3 times daily, write down values to continue to optimize control of hypertension. Target blood pressures 120/80. You are set up with a heart monitor to check and see if you are not experiencing slow or fast heart rate episodes. Follow-up for continued optimization of risk factors of cardiovascular disease, carotid stenosis and stroke. Continue heart healthy diet, include 150 minutes of moderate exercise per week. Continue aspirin. Your cholesterol medication dose is increased to higher int ensity. On reassessment by primary provider discuss consideration of anticoagulation for stroke risk prevention since he reported having an episode of atrial fibrillation in the past. Seek medical attention immediately in case of any recurrent, worsening or new concerning symptoms. Discharge Attestations Time Spent in Discharge Care*: greater than 30 min Quality Metrics Clinical Quality Measures [ Cerebrovascular Accident { Contraindication to Antithrombotic: None; antithrombotic prescribed; Contraindication to Anticoagulation: Overlap treatment not indicated; Contraindication to Statin: None; Statin prescribed;}] Coding Level of Care Code Acute Code for Chg Fwd Diagnoses TIA (transient ischemic attack) G45.9 Pre-syncope R55 Clonus R25.8 HTN (hypertension) I10 Carotid stenosis I65.29 Cerebral aneurysm I67.1
== END 2023-09-04 10:50 | disposition home or self-care (01) ==
LOC: ER 15:41 → MEDSURG 19:54
PROVIDERS: Admitting Provider Internal Medicine; Emergency Provider Family Medicine; PCP Nurse Practitioner Family; Visit Provider Internal Medicine
DX: G45.9 Transient cerebral ischemic attack, unspecified (principal); R29.700 NIHSS score 0; R55 Syncope and collapse; R25.8 Other abnormal involuntary movements; I10 Essential (primary) hypertension; I65.29 Occlusion and stenosis of unspecified carotid artery; I67.1 Cerebral aneurysm, nonruptured; I48.91 Unspecified atrial fibrillation; Z79.82 Long term (current) use of aspirin; Z86.73 Personal history of transient ischemic attack (TIA), and cerebral infarction without residual deficits; Z87.891 Personal history of nicotine dependence
CPT/HCPCS: 36415; 51702; 70450; 70496; 70498; 70551; 80053; 80306; 81003; 83735; 84484; 85025; 85610; 85730; 87486; 87581; 87633; 93005; 95816; 96372; 96374; 96375; 97110; 97116; 97162; 97530; 99285; C8929; G0378; J0360; J1200; J1644; J2920; J3490; Q9967

== ENCOUNTER → 2023-10-19 10:53 | Outpatient (BNVA) | payer MEDICARE, BC, SELFPAY | PROVIDERS: PCP Nurse Practitioner Family; Visit Provider Thoracic Surgery (Cardiothoracic Vascular Surgery) | DX: I65.22 Occlusion and stenosis of left carotid artery (principal); F17.200 Nicotine dependence, unspecified, uncomplicated | CPT/HCPCS: 99203 ==

== ENCOUNTER 2023-11-03 13:10 | Outpatient (CLI) | payer MEDICARE, BC, SELFPAY ==
--- NOTE | 2023-11-03 13:30 | MM_ITS ---
WS: [id number] BILATERAL 3D TOMOSYNTHESIS DIGITAL SCREENING MAMMOGRAPHY WITH CAD CLINICAL INFORMATION: SCREENING HISTORY: Screening mammogram. No current complaints. COMPARISON: 2021 TECHNIQUE: Bilateral CC and MLO views. FINDINGS: The breasts are composed of heterogeneous fibroglandular density tissue, which can limit the detectio n of small underlying mass lesions. No suspicious mass, asymmetry, calcifications, or architectural d istortion. No evidence of malignancy. Punctate and lucent centered calcifications. Vascular calcifica tions. Stable cluster calcifications RIGHT breast. MM/[place] [id number] IMPRESSION: BI-RADS: 2-Benign FOLLOW UP: 1 Year Follow-up Recommend return to annual screening mammography.
== END 2023-11-03 13:11 | disposition home or self-care (01) ==
LOC: MOBLMAM 13:18
PROVIDERS: PCP Nurse Practitioner Family; Visit Provider Nurse Practitioner Family
DX: Z12.31 Encounter for screening mammogram for malignant neoplasm of breast (principal)
CPT/HCPCS: 77063; 77067

== ENCOUNTER → 2024-01-28 10:07 | Outpatient (BNVA) | payer MEDICARE, BC, SELFPAY | PROVIDERS: PCP Nurse Practitioner Family; Visit Provider Podiatrist Foot & Ankle Surgery | DX: L60.3 Nail dystrophy (principal); I73.9 Peripheral vascular disease, unspecified | CPT/HCPCS: 11721; 99203 ==